=== PATIENT | male | born 1965 | race Caucasian/White ===

== ENCOUNTER 2016-09-11 20:04 | Emergency (ER) | payer OTHER | END 2016-09-11 22:15 | disposition home or self-care (01) | LOC: D.ER 20:04 | DX: S29.8XXA Other specified injuries of thorax, initial encounter (principal); W19.XXXA Unspecified fall, initial encounter; Y93.89 Activity, other specified; Y92.89 Other specified places as the place of occurrence of the external cause; F17.200 Nicotine dependence, unspecified, uncomplicated ==

== ENCOUNTER 2016-09-12 14:36 | Emergency (ER) | payer OTHER | END 2016-09-12 16:30 | disposition home or self-care (01) | LOC: D.ER 14:36 | DX: S29.8XXA Other specified injuries of thorax, initial encounter (principal); W17.89XA Other fall from one level to another, initial encounter; Y93.89 Activity, other specified; Y92.89 Other specified places as the place of occurrence of the external cause; F17.200 Nicotine dependence, unspecified, uncomplicated ==

== ENCOUNTER 2016-09-13 00:02 | Emergency (ER) | payer OTHER | END 2016-09-13 01:02 | disposition home or self-care (01) | LOC: D.ER 00:02 | DX: S22.41XS Multiple fractures of ribs, right side, sequela (principal); W13.8XXA Fall from, out of or through other building or structure, initial encounter; Y93.89 Activity, other specified; Y92.89 Other specified places as the place of occurrence of the external cause ==

== ENCOUNTER → 2016-10-01 08:38 | Outpatient (CLI) | payer OTHER | END | disposition home or self-care (01) | LOC: D.RT 08:38 | DX: J44.9 Chronic obstructive pulmonary disease, unspecified (principal) ==

== ENCOUNTER 2017-02-11 21:41 | Emergency (ER) | payer OTHER ==
[2017-02-15 12:03] VITALS: BMI 24.4
== END 2017-02-11 23:20 | disposition home or self-care (01) ==
LOC: D.ER 21:41
DX: R07.89 Other chest pain (principal); F17.200 Nicotine dependence, unspecified, uncomplicated

== ENCOUNTER 2017-02-15 11:10 | Outpatient (CLI) | payer OTHER ==
[~2017-02-15] VITALS: Ht 175.3 cm; Wt 75.0 kg
--- NOTE | ~2017-02-15 | HEMODYNAMI ---
PATIENT:BERTHA BERKOWITZ MEDICAL RECORD: [id number] : 63 LOCATION:D.CAT ADMISSION DATE: 02/15/17 Generatedon:02/15/201715:40 Patient name: BERTHA BERKOWITZ Patient #: [id number] SSN: DO B: 1965 Date of study: 02/15/2017 Page: Of Hemodynamic Procedure Report Patient Data Patient Demographics Procedure consent was obtained First Name: BERTHA Gender: Male Last Name: WOO : 1965 [facility] Initial: RIKA Age: 51 year(s) Patient #: [id number] Race: Unknown Additional ID: [id number] Contact details Address: [address] [place] [address] State: [place] City: [place] Zip code: [address] Past Medical History Allergies: No known allergies Admission Admission Data Admission Date: 02/15/2017 Admission Time: 11:10 Lab Results Lab Result Date: 02/15/2017 Lab Result Time: 0:00 Biochemistry Name Units Result Min Max BUN mg/dl 12 --(-*--)-- 7 18 Creatinine mg/dl 0.8 --(-*--)-- 0.6 1.3 CBC Name Units Result Min Max Hemoglobin g/dl 16.2 --(--*-)-- 13.5 17.5 Procedure Procedure Types Cath Procedure Diagnostic Procedure [facility] w/Coronaries PCI Procedure Coronary Stent Initial Miscellaneous Procedures Moderate Sedation up to 30 minutes Procedure Description Procedure Date Procedure Date: 02/15/2017 Procedure Start Time: 15:05 Procedure End Time: 15:35 Procedure Staff Name Function Carlos Artis MD Performing Physician Brandan Miranda RT Scrub Norma Hartman RN Nurse Brady Abad RT Monitor Procedure Data Cath Procedure Fluoroscopy Diagnostic fluoroscopy Total fluoroscopy Time: time: 10.2 min 10.2 min Diagnostic fluoroscopy Total fluoroscopy dose: dose: 1151 mGy 1151 mGy Contrast Material Contrast Material Type Amount (ml) Isovue 300 156 Entry Location Entry Primary Successful Side Size Upsize Upsize Entry Closure Bahena ccessful Closure Location (Fr) 1 (Fr) 2 (Fr) Remarks Device Remarks Radial Right 6 Fr Mechanical artery Short Compression Diagnostic catheters Device Type Used For End Catheter Placement Diagnostic Terumo 5Fr LV Angiography [place] 110cm catheter Procedure Complications No complications Procedure Medications Medication Administration Route Dosage Oxygen NC 2 l/min Lidocaine 2% added to field 20 Heparin Flush Bag added to field 2 bags (1000units/500ml NS) 0.9% NaCl I.V. 100 ml/hr Versed I.V. 1 mg Fentanyl I.V. 50 mcg Versed I.V. 1 mg Fentanyl I.V. 50 mcg Heparin Bolus I.V. 4000 units Integrilin (Bolus I.V. 6.8 ml 2mg/ml) Fentanyl I.V. 50 mcg Versed I.V. 1 mg Fentanyl I.V. 50 mcg Versed I.V. 1 mg Fentanyl I.V. 100 mcg Nitroglycerin IC/IA I.C. 100 mcg Plavix P.O. 600 mg Hemodynamics Rest HGB: 16.2 (g/dl) Heart Rate: 66 (bpm) Pressure Samples Time Site Value (mmHg) Purpose Heart Use Rate(bpm) 15:08 LV 98/10,9 EDP 81 Gradients Valve Time Site Site Mean SEP/DFP Peak To Heart Use 1 2 (mmHg) (sec/min) Peak Rate (mmHg) (bpm) Aortic 15:08 LV AO 103 Snapshots Pre Cath Intra NCS Post Cath Vital Signs Time Heart Resp SPO2 etCO2 [id number] NIBP (mmHg) Rhythm Pain Meena tion Rate (ipm) (%) (mmHg) (mmHg) Status Level (bpm) 15:01:00 67 16 94 0 0 115/70(90) NSR 0 (11) , 10(A ) No pain 15:05:04 78 19 96 0 0 114/80(91) NSR 0 (11) , 10(A ) No pain 15:09:10 90 18 95 0 0 104/72(90) NSR 0 (11) , 10(A ) No pain 15:13:11 84 19 94 0 0 108/76(91) NSR 0 (11) , 10(A ) No pain 15:17:15 79 16 93 0 0 110/78(98) NSR 0 (11) , 10(A ) No pain 15:21:19 72 17 95 0 0 109/76(99) NSR w/ ST 6 (11) , 10(A ) Elevation Intense 15:25:22 66 15 96 0 0 125/76(97) NSR w/ ST 6 (11) , 10(A ) Elevation Intense 15:29:30 67 16 95 0 0 120/81(111) NSR w/ ST 6 (11) , 10(A ) Elevation Intense 15:33:36 75 16 94 0 0 124/83(110) NSR 3 (11) , 10(A ) Tolerable Medications Time Medication Route Dose Verified Delivered Reason Notes Effectiveness by by 14:55:21 Oxygen NC 2 Carlos Buffie used for l/min St. Abel Hartman RN procedure 14:55:28 Lidocaine 2% added 20ml Carlos Carlos for local to vial [facility] anesthetic field MD BLUNT 14:55:36 Heparin Flush added 2 Carlos Carlos used for Bag to bags [facility] procedure (1000units/500ml field MD BLUNT NS) 14:55:46 0.9% NaCl I.V. 100 Carlos Buffie Per physician ml/hr [facility]. Abel Hartman RN, MD 15:03:46 Versed I.V. 1 mg Carlos Buffie for sedation [facility]. Abel Hartman RN, MD 15:03:53 Fentanyl I.V. 50 Carlos Buffie for sedation mcg [facility] Abel Hartman RN, MD 15:07:14 Versed I.V. 1 mg Carlos Buffie for sedation St. Abel Hartman RN, MD 15:07:17 Fentanyl I.V. 50 Carlos Buffie for sedation mcg St. Abel Hartman RN, MD 15:11:50 Heparin Bolus I.V. 4000 Carlos Buffie for verifi ed units St. Abel Hartman RN anticoagulation with dr MD aviles 15:13:43 Integrilin I.V. 6.8 Carlos Buffie for wasted (Bolus 2mg/ml) ml St. Abel Hartman RN antiplatelet 3.2 ml MD therapy of vial 15:15:05 Fentanyl I.V. 50 Carlos Buffie for sedation mcg St[facility] Abel Hartman RN, MD 15:19:23 Versed I.V. 1 mg Carlos Buffie for sedation St. Abel Hartman RN, MD 15:19:26 Fentanyl I.V. 50 Carlos Buffie for sedation mcg St[facility] Abel Hartman RN, MD 15:25:17 Versed I.V. 1 mg Carlos Green for sedation St. Abel Hartman RN, MD 15:28:07 Fentanyl I.V. 100 Carlos Green for sedation jac Moss RN, MD 15:29:58 Nitroglycerin I.C. 100 Carlos Gonzalez for IC/IA mcg St. Abel Cody MD, MD 15:36:01 Plavix P.O. 600 Carlos Green for mg [facility] Abel Hartman RN antiplatelet therapy Procedure Log Time Note 14:36:34 Brandan Miranda RT(R) sent for patient. Start room use. 14:36:35 Time tracking: Regular hours 14:36:41 Plan of Care:Hemodynamics will remain stable., Cardiac rhythm will remain stable., Comfort level will be maintained., Respiratory function will remain adequate., Patient/ family verbilizes understanding of procedure., Procedure tolerated without complication., Recovers from procedure without complications.. 14:49:15 Patient received from Pre/Post Procedure Room to [facility] 1 Alert and oriented. Tansferred to table in Supine position. 14:49:16 Warm blankets applied, and brigid hugger turned on for patient comfort. 14:49:16 Correct patient and procedure confirmed by team. 14:49:17 Signed procedure consent form obtained from patient. 14:49:18 ECG and BP/O2 sat monitors applied to patient. 14:49:25 Baseline sample Acquired. 14:49:36 Baseline sample Acquired. 14:49:41 Rhythm: sinus rhythm 14:49:43 Full Disclosure recording started 14:55:21 Oxygen 2 l/min NC was administered by Norma Hartman RN; used for procedure; 14:55:28 Lidocaine 2% 20ml vial added to field was administered by Carlos Artis MD; for local anesthetic; 14:55:36 Heparin Flush Bag (1000units/500ml NS) 2 bags added to field was administered by Carlos Artis MD; used for procedure; 14:55:46 0.9% NaCl 100 ml/hr I.V. was administered by Norma Hartman RN; Per physician; 14:59:54 Baseline sample Acquired. 14:59:54 Vital chart was started 15:00:03 H&P Date Dictated: 02/11/2017 Within 30 days and on chart., H&P Addendum completed by physician on day of procedure. (MUST COMPLETE FOR ALL OUTPATIENTS). 15:00:05 Pre-procedure instructions explained to patient. 15:00:06 Pre-op teaching completed and patient verbalized understanding. 15:00:08 Family in waiting room. 15:00:10 Patient NPO since Midnight. 15:00:18 Patient allergic to No known allergies 15:00:23 Is the patient allergic to Iodine/contrast media? No. 15:00:29 Is patient on blood thinner?No 15:00:32 Patient diabetic? No. 15:00:34 ----Pre-sedation anethsthesia assessment.---- 15:00:37 Previous problem with sedation/anesthesia? No . 15:00:40 Snore? Yes 15:00:42 Sleep apnea? No 15:00:43 Deviated septum? No 15:00:45 Opens mouth fully? Yes 15:00:47 Sticks out tongue? No 15:00:51 Airway obstruction? Yes COPD 15:00:57 Dentures? Yes IN TIGHT 15:01:04 Pre procedure: right dorsailis pedis pulse 1+ Palpable, but thready & weak; easily obliterated 15:01:08 Modified Juan's test Ulnar > 7 seconds. 15:01:11 Patient pain scale 0/10 ?. 15:01:18 IV patent on arrival in left forearm with 0.9% NaCl at 10ml/hr. 15:01:43 Lab Result : BUN 12 mg/dl 15:01:43 Lab Result : Hemoglobin 16.2 g/dl 15:01:43 Lab Result : Creatinine 0.8 mg/dl 15:01:46 Lab results completed and on chart. 15:01:50 Right Radial & Right Groin area was prepped with chlora-prep and draped in sterile fashion 15:01:51 Alarms reviewed by R. N. 15:01:52 Sharps counted by scrub and verified by R.N. 15:01:54 --------ALL STOP TIME OUT------ 15::55 Final Timeout: patient, procedure, and site verified with staff and physician. All members of the team are in agreement. 15:02:04 Right Radial & Right Groin site verified by team. 15:02:11 Physical assessment completed. ASA score P 2 - A patient with mild systemic disease as per Carlos Artis MD. 15:02:14 Sedation plan: IV Moderate Sedation Versed, Fentanyl 15:03:46 Versed 1 mg I.V. was administered by Norma Hartman RN; for sedation; 15:03:53 Fentanyl 50 mcg I.V. was administered by Norma Hartman RN; for sedation; 15:05:24 Use device set Radial Dx 15:05:25 Acist Syringe opened to sterile field. 15:05: Medline Cath Pack opened to sterile field. 15:05:26 Bag Decanter opened to sterile field. 15:05: Terumo 6Fr Slender Glidesheath opened to sterile field. 15:05:27 St Benjamin 260cm J .035 wire opened to sterile field. 15:05:27 Acist Hand Control opened to sterile field. 15:05:27 Acist Manifold opened to sterile field. 15:05:28 Tegaderm 4 x 4 opened to sterile field. 15:05:28 MBrace Wrist Support opened to sterile field. 15:05:31 Procedure started. 15:05:47 Local anesthetic to right radial artery with Lidocaine 2% by Carlos Artis MD.INITIAL ACCESS ONLY 15:05:55 A 6 Fr Short sheath was inserted into the Right Radial artery 15:06:25 A Diagnostic Terumo 5Fr [place] 110cm catheter was advanced over the wire and used for LV Angiography. 15:06:29 LV angiography performed. 15:06:31 LV gram done using RUFFIN 15:06:34 LV hemodynamics recorded. 15:06:38 Injector settings: Ml/sec: 5, Volume: 15, 15:07:14 Versed 1 mg I.V. was administered by Norma Hartman RN; for sedation; 15:07:17 Fentanyl 50 mcg I.V. was administered by Norma Hartman RN; for sedation; 15:08:26 EF : 55 % 15:08:39 LCA angiography performed. 15:10:06 RCA angiography performed. 15:11:04 Catheter removed. 15:11:50 Heparin Bolus 4000 units I.V. was administered by Norma Hartman RN; for anticoagulation; verified with dr aviles 15:13:08 Stirling Ultracold(Global Cooling) Launcher 6Fr EBU 3.5 guide catheter opened to sterile field. 15:13:08 Health 123 BasixCompak Inflation Kit opened to sterile field. 15:13:09 Lares [place] 300cm 0.014 guide wire opened to sterile field. 15:13:39 ACC Pre-intervention DOC Flow is 3. 15:13:43 Integrilin (Bolus 2mg/ml) 6.8 ml I.V. was administered by Norma Hartman RN; for antiplatelet therapy; wasted 3.2 ml of vial 15:13:50 Baseline sample Acquired. 15:13:56 Study PCI Site: [place] mCirc has 90% stenosis. 15:14:05 6 Fr EBU 3.5 guide catheter was inserted over the wire 15:14:41 COUGAR wire advanced. 15:15:05 Fentanyl 50 mcg I.V. was administered by Norma Hartman RN; for sedation; 15:19:23 Versed 1 mg I.V. was administered by Norma Hartman RN; for sedation; 15:19:26 Fentanyl 50 mcg I.V. was administered by Norma Hartman RN; for sedation; 15:22:38 The Medtronic Integrity 3.5 X 22 stent was advanced then removed because of failure to cross lesion 15:23:28 Inflation number: 1 A [place] Sci Christian 3.0 X 15 balloon was prepped and advanced across the Mid CX, then inflated to 10 DENIS for 0:23 (min:sec). 15:23:36 Inflation number: 2 The [place] Sci Christian 3.0 X 15 balloon was reinflated across the Mid CX, to 10 DENIS for 0:06 (min:sec). 15:24:07 Inflation number: 3 The [place] Sci Christian 3.0 X 15 balloon was reinflated across the Mid CX, to 12 DENIS for 0:20 (min:sec). 15:24:44 Balloon removed over the wire. 15:25:17 Versed 1 mg I.V. was administered by Norma Hartman RN; for sedation; 15:27:25 Inflation Number: 4 A Medtronic Integrity 3.5 X 22 stent was prepped and advanced across the Mid CX. The stent was deployed at 14 DENIS for 0:20 (min:sec). 15:28:07 Fentanyl 100 mcg I.V. was administered by Norma Hartman RN; for sedation; 15:29:58 Nitroglycerin IC/IA 100 mcg I.C. was administered by Carlos Artis MD; for vasodilation; 15:31:01 Stent catheter was removed intact over wire. 15:31:02 Wire removed. 15:31:02 Guide catheter removed. 15:31:15 Contrast amount:Isovue 300 156ml. 15:31:23 Sheath removed intact; hemostasis achieved with Mechanical Compression to the Right Radial artery. 15:31:39 Terumo TR Band Standard opened to sterile field. 15:31:42 Procedure ended.(Physican Out) 15:32:03 Fluoroscopy time 10.20 minutes. 15:32:08 Fluoroscopy dose: 1151 mGy 15:32:08 Flurop Dose total: 1151 15:32:10 Sharps counted by scrub and verified by R.N. 15:32:13 TR band inflated with 10cc of air. 15:33:44 Post Procedure Pulses reassessed and unchanged 15:33:51 Post procedure rhythm: sinus rhythm 15:34:13 Post procedure instruction explained to patient.Patient verbalizes understanding. 15:34:31 Procedure type changed to Cath procedure, Diagnostic procedure, LHC, LHC w/Coronaries, PCI procedure, Coronary Stent Initial, Miscellaneous Procedures, Moderate Sedation up to 30 minutes 15:34:53 Procedure and supply charges have been captured, reviewed, submitted and are correct. 15:34:56 Procedure Complication : No complications 15:34:59 Vital chart was stopped 15:34:59 See physician's report for complete and final results. 15:35:01 Report given to Pre/Post Procedure Room. 15:35:05 Patient transfered to Pre/Post Procedure Room with Stretcher. 15:35:07 Procedure ended. 15:35:07 Full Disclosure recording stopped 15:35:11 End room use (Document Last) 15:35:25 ACC-PCI Only Patient was given prescriptions, or instructed by Carlos Artis MD to start/continue the following medications upon discharge: Plavix 15:36:01 Plavix 600 mg P.O. was administered by Norma Hartman RN; for antiplatelet therapy; Intervention Summary Intervention Notes Time ActionType Lesion and Equipment Action# Pressure Duration Attributes Used 15:22:38 Discard Medtronic Stent Integrity 3.5 X 22 stent 15:23:28 Inflate Mid CX [place] 1 10 00:23 balloon Sci Christian 3.0 X 15 balloon 15:23:36 Reinflate Mid CX [place] 2 10 00:07 balloon Sci Christian 3.0 X 15 balloon 15:24:07 Reinflate Mid CX [place] 3 12 00:20 balloon Sci Christian 3.0 X 15 balloon 15:27:25 Place stent Mid CX Medtronic 4 14 00:20 Integrity 3.5 X 22 stent Device Usage Item Name Manufacture Quantity Catalog Number Hospital Part Current Mini mal Lot# / Charge Number Stock Stock Serial# Code Acist Acist 1 96179 124556 060673 536163 20 Syringe Medical Systems Inc Medline Cardinal 1 [id number] 427657 60187 154489 5 Cath Pack Health Bag Microtek 1 2001S 946202 02352 846243 5 Skydeck Inc. Terumo 6Fr Terumo 1 [id number] 346224 553947 038036 [address] St Benjamin 1 733308 508874 855889 667374 30 260cm J .035 wire Acist Hand Acist 1 02402 606366 499815 743391 5 Control Medical Systems Inc Acist Acist 1 94806 330333 390412 273325 5 Manifold Medical Systems Inc Tegaderm 4 3M 1 1626W 436412 180978 826885 5 x 4 MBrace Advanced 1 140-0250-00 544820 40275 499262 5 Wrist Vascular Support Dynamics Diagnostic Terumo 1 40-5562 609897 546855 656015 5 Terumo 5Fr [place] 110cm catheter Medtronic Medtronic 1 [id number] 265079 33607 720709 3 Launcher 6Fr EBU 3.5 guide catheter Merit Merit 1 [id number] 200125 028308 082600 15 BasixCompak Medical Inflation Kit Lares Lares 1 [id number] 160525 195087 641803 1 [place] Vascular 300cm 0.014 guide wire Medtronic Medtronic 1 [id number] 114629 722866 8 [id number] Integrity 3.5 X 22 stent [place] Sci [place] 1 [id number] 195674 564880 594785 1 [id number] Christian Scientific 3.0 X 15 balloon Terumo TR Terumo 1 [id number] 091107 616186 061308 40 Band Standard Signature Audit [place] Stage Time Signature Unsigned Intra-Procedure 02/15/2017 Brady Abad 3:40:22 PM RT(R) Signatures Monitor : Brady Abad RT Signature : Date : Time : [address] [place] [address]
[2017-02-15] MEDS ORDERED: QVAR8.7 G1 INH (11:52)
[2017-02-15] MEDS ORDERED: TORADOL10 MG PO (11:52)
[2017-02-15] MEDS ORDERED: PROAIR HFA8.5 GM INH (11:53)
[2017-02-15 12:03] VITALS: BP 121/84; Ht 175.3 cm; Wt 75.0 kg
[2017-02-15 12:57] LABS: BASOPHILS 0.2 % (0-2); EOSINOPHILS 2.5 % (0-7); HEMOGLOBIN 16.2 g/dL (13.5-17.5); IMMATURE GRANULOCYTES 0.3 % (0-5); LYMPHOCYTES 20.4 % (15-50); MCH 31.7 pg (26.0-34.0); MCHC 34.5 g/dL (31.0-37.0); MEAN PLATELET VOLUME 9.5 fL (7.4-10.4); MONOCYTES 6.8 % (2-11); NEUTROPHILS 69.8 % (40-80); PLATELET COUNT 293 10x3/uL (130-400); RBC 5.11 10x6/uL (4.20-6.10); RDW 13.4 % (11.5-14.5); WBC 10.6 10x3/uL (4.8-10.8)
[2017-02-15 13:40] LABS: CALC OSMOLALITY 279 mosm/kg (275-300); CARBON DIOXIDE 26.4 mmol/L (21.0-32.0); CHLORIDE - SERUM 105 mmol/L (98-107); CREATININE - SERUM 0.8 mg/dL (0.6-1.3); GLUCOSE 88 mg/dL (74-106); POTASSIUM - SERUM 4.5 mmol/L (3.5-5.1); SODIUM 141 mmol/L (136-145); UREA NITROGEN 12 mg/dL (7-18); eGFR NON AFRICAN AMERICAN > 90 mL/min (90-120)
[2017-02-15] MEDS ORDERED: PLAVIX75 MG PO (15:59)
--- NOTE | 2017-02-15 16:00 | NUR ---
TR BAND CDI TO RIGHT WRIST, NO BLEEDING AT SITE, C/O CHEST DISCOMFORT-DR NOTIFIED
--- NOTE | 2017-02-15 16:15 | NUR ---
CHEST DISCOMFORT AT A 7- MORPHINE 10 MG GIVEN SIVP, O2 AT 2L PER NC, AT SIDE. EATING A SANDWICH AT THIS TIME.
--- NOTE | 2017-02-15 16:45 | NUR ---
PAIN BETTER- 5 AT THIS TIME
--- NOTE | 2017-02-15 19:55 | NUR ---
WRITTEN AND VERBAL INSTRUCTIONS GIVEN TO PT AND - VERBAL UNDERSTANDING NOTED. D'C HOME WITH
--- NOTE | 2017-02-16 13:16 | OP ---
PATIENT NAME: BERTHA BERKOWITZ MEDICAL RECORD: [id number] :63 LOCATION:D.CAT ADMISSION DATE: SURGEON: PIYUSH MONGE MD OPERATION DATE: 02/15/17 PROCEDURES: 1. Left heart catheterization. 2. Selective coronary angiography. PROCEDURE IN DETAIL: After informed consent was obtained and after detailed explanation of risks, benefits, as well as alternative therapies, the patient elected to proceed with angiogram. The right radial area was prepped and draped in a normal sterile fashion. The right radial artery was cannulated via modified Seldinger technique with placement o f 5-Turkmen sheath, 5 [place]. All catheters exchanged through this sheath. The procedure was well-tolerated. The patient was returned to the montero. After sheath was removed, proceeded with percutaneous transluminal coronary angioplasty stenting of the circumflex. FINDINGS: Left ventriculography was performed in standard 30 degree RUFFIN view, normal wall motion, normal systolic function. CORONARY ANATOMY: 1. The left main is free of disease. 2. The left anterior descending is free of disease as is the diagonal system. 3. The circumflex is a large circumflex system codominant, and this has an elongated tight 90% plus stenosis. DOC flow 3 distally. 4. The right coronary artery is again a codominant system. It has about an 80% diffuse stenosis in its proximal one-third. IMPRESSION: Appears to be circumflex. Plan intervention momentarily. After EBU guided catheter provided excellent guidance of the catheter forward followed by a 300 centimeter [place] XT wire was placed across the tightly occluded circumflex to the distal portion of the vessel. Pre-deployment balloon used was a 3.0 X 15 Pepin. The stent deployed was a 3.5 X 22 millimeter Integrity [id number] stent up to 14 atmospheres for 45 seconds. Final angiography shows excellent resolution of a greater than 90% stenosis. No significant residual. DOC flow was 3 throughout the procedure. Integrilin was used during the case. Plavix was loaded in the lab. Sheath was closed with TR band. PIYUSH MONGE MD at 1316 CC: [id number] DICTATION DATE: 02/15/17 1500 AESTHETICIAN: DM 02/16/17 0857 DEP CLI 02/15/17 [facility] [address] [place] [address]
== END 2017-02-15 20:00 | disposition home or self-care (01) ==
LOC: D.CATH 11:10
PROVIDERS: Internal Medicine Interventional Cardiology
DX: I25.10 Atherosclerotic heart disease of native coronary artery without angina pectoris (principal)

== ENCOUNTER 2017-02-23 11:14 | Outpatient (CLI) | payer OTHER ==
[~2017-02-23] VITALS: Ht 175.3 cm; Wt 75.0 kg
--- NOTE | ~2017-02-23 | HEMODYNAMI ---
PATIENT:BERTHA BERKOWITZ MEDICAL RECORD: [id number] : 63 LOCATION:DTamikoCAT ADMISSION DATE: 02/23/17 Generatedon:02/23/201714:23 Patient name: BERTHA BERKOWITZ Patient #: [id number] SSN: DO B: 1965 Date of study: 02/23/2017 Page: Of Hemodynamic Procedure Report Patient Data Patient Demographics Procedure consent was obtained First Name: BERTHA Gender: Male Last Name: WOO : 1965 [facility] Initial: RIKA Age: 51 year(s) Patient #: [id number] Race: Unknown Additional ID: [id number] Contact details Address: [address] [place] [address] State: [place] City: [place] Zip code: [address] Past Medical History Allergies: No known allergies Admission Admission Data Admission Date: 02/23/2017 Admission Time: 11:14 Lab Results Lab Result Date: 02/23/2017 Lab Result Time: 0:00 Biochemistry Name Units Result Min Max Creatinine mg/dl 0.9 --(-*--)-- 0.6 1.3 CBC Name Units Result Min Max Hemoglobin g/dl 16.3 --(--*-)-- 13.5 17.5 Procedure Procedure Types Cath Procedure PCI Procedure Coronary Stent Initial Miscellaneous Procedures Moderate Sedation up to 30 minutes Procedure Description Procedure Date Procedure Date: 02/23/2017 Procedure Start Time: 13:59 Procedure End Time: 14:22 Procedure Staff Name Function Carlos Artis MD Performing Physician Gordo Garcia RT Scrub Norma Hartman RN Nurse Neema Wooten RT Monitor Alistair Hagan RN [employer] Football[employer] Procedure Data Cath Procedure Fluoroscopy Diagnostic fluoroscopy Total fluoroscopy Time: 2.6 time: 2.6 min min Diagnostic fluoroscopy Total fluoroscopy dose: 112 dose: 112 mGy mGy Contrast Material Contrast Material Type Amount (ml) Isovue 300 37 Entry Location Entry Primary Successful Side Size Upsize Upsize Entry Closure Succes sful Closure Location (Fr) 1 (Fr) 2 (Fr) Remarks Device Remarks Femoral Right 6 Fr Exoseal artery Short Estimated blood loss: 5 ml Procedure Complications No complications Procedure Medications Medication Administration Route Dosage Oxygen NC 2 l/min Lidocaine 2% added to field 20 Heparin Flush Bag added to field 2 bags (1000units/500ml NS) 0.9% NaCl I.V. 100 ml/hr Versed I.V. 2 mg Fentanyl I.V. 100 mcg Versed I.V. 2 mg Fentanyl I.V. 100 mcg Heparin Bolus I.V. 4000 units Versed I.V. 1 mg Fentanyl I.V. 50 mcg Fentanyl I.V. 50 mcg Versed I.V. 2 mg Hemodynamics Rest Heart Rate: 76 (bpm) Snapshots Pre Cath Intra NCS Post Cath Vital Signs Time Heart Resp SPO2 etCO2 WI2rwcf NIBP (mmHg) Rhythm Pain Status Meena tion Rate (ipm) (%) (mmHg) (mmHg) Level (bpm) 13:50:29 78 15 97 0 0 115/79(86) NSR 0 (11) , No 10(A ) pain 13:54:35 76 18 98 0 0 105/74(92) NSR 0 (11) , No 10(A ) pain 13:58:36 85 16 95 0 0 101/75(88) NSR 0 (11) , No 10(A ) pain 14:02:34 80 16 96 0 0 109/81(93) NSR 0 (11) , No 10(A ) pain 14:06:38 83 17 95 0 0 107/74(88) NSR 0 (11) , No 10(A ) pain 14:10:37 90 17 98 0 0 110/84(95) NSR 7 (11) , 10(A ) Very intense 14:14:39 87 16 98 0 0 116/81(107) NSR 7 (11) , 10(A ) Very intense 14:18:43 90 16 98 0 0 112/77(97) NSR 7 (11) , 10(A ) Very intense 14:22:02 86 16 98 0 0 110/89(94) NSR 5 (11) , 10(A ) Very distressing Medications Time Medication Route Dose Verified Delivered Reason Notes Effectiveness by by 13:55:59 Oxygen NC 2 Carlos Green used for l/min St. Abel Hartman RN procedure 13:56:05 Lidocaine 2% added 20ml Carlos Carlos for local to vial [facility] anesthetic field MD BLUNT 13:56:12 Heparin Flush added 2 Carlos Carlos used for Bag to bags [facility] procedure (1000units/500ml field MD BLUNT NS) 13:56:20 0.9% NaCl I.V. 100 Carlos Buffie Per physician ml/hr St. Abel Hartman RN, MD 13:57:13 Versed I.V. 2 mg Carlos Buffie for sedation St. Abel Hartman RN, MD 13:57:19 Fentanyl I.V. 100 Carlos Buffie for sedation mcg St[facility] Abel Hartman RN, MD 14:02:19 Versed I.V. 2 mg Carlos Buffie for sedation St. Abel Hartman RN, MD 14:02:22 Fentanyl I.V. 100 Carlos Buffie for sedation mcg St. Abel Hartman RN, MD 14:03:27 Heparin Bolus I.V. 4000 Carlos Buffie for verifi ed units St. Abel Hartman RN anticoagulation with dr MD ray 14:06:17 Versed I.V. 1 mg Carlos Buffie for sedation St. Abel Hartman RN, MD 14:06:21 Fentanyl I.V. 50 Carlos Buffie for sedation mcg St. Abel Hartman RN, MD 14:14:33 Fentanyl I.V. 50 Carlos Buffie for chest pain mcg St. Abel Hartman RN, MD 14:18:29 Versed I.V. 2 mg Carlos Buffie for sedation St. Abel Hartman RN, MD Procedure Log Time Note 13:39:49 Alistair Hagan RN sent for patient. Start room use. 13:39:49 Time tracking: Regular hours 13:39:53 Plan of Care:Hemodynamics will remain stable., Cardiac rhythm will remain stable., Comfort level will be maintained., Respiratory function will remain adequate., Patient/ family verbilizes understanding of procedure., Procedure tolerated without complication., Recovers from procedure without complications.. 13:39:58 Patient received from Pre/Post Procedure Room to [facility] 1 Alert and oriented. Tansferred to table in Supine position. 13:39:59 Warm blankets applied, and brigid hugger turned on for patient comfort. 13:39:59 Correct patient and procedure confirmed by team. 13:40:00 Signed procedure consent form obtained from patient. 13:40:01 ECG and BP/O2 sat monitors applied to patient. 13:40:02 Full Disclosure recording started 13:49:32 Vital chart was started 13:49:35 Rhythm: sinus rhythm 13:51:07 H&P Date Dictated: 02/11/2017 Within 30 days and on chart., H&P Addendum completed by physician on day of procedure. (MUST COMPLETE FOR ALL OUTPATIENTS). 13:51:44 Pre-procedure instructions explained to patient. 13:51:44 Pre-op teaching completed and patient verbalized understanding. 13:51:46 Family in waiting room. 13:51:49 Patient NPO since Midnight. 13:51:56 Is the patient allergic to Iodine/contrast media? No. 13:51:57 Is patient on blood thinner?Yes 13:51:59 ACC The patient was administered the following blood thiners within the last 24 hours: ACCPlavix 13:52:01 Patient diabetic? No. 13:52:05 Previous problem with sedation/anesthesia? No ? 13:52:06 Snore? Yes 13:52:07 Sleep apnea? No 13:52:08 Deviated septum? No 13:52:09 Opens mouth fully? Yes 13:52:09 Sticks out tongue? Yes 13:52:11 Airway obstruction? No ? 13:52:13 Dentures? Yes In 13:52:17 Pre procedure: right dorsailis pedis pulse 2+ Normal; easily identifiable; not easily obliterated 13:52:20 Patient pain scale 0/10 ?. 13:52:42 IV patent on arrival in left hand with 0.9% NaCl at O. 13:52:49 Lab results completed and on chart. 13:53:53 Lab Result : Creatinine 0.9 mg/dl 13:53:53 Lab Result : Hemoglobin 16.3 g/dl 13:53:59 Right groin area was prepped with chlora-prep and draped in sterile fashion 13:54:00 Alarms reviewed by R. N. 13:54:00 Sharps counted by scrub and verified by R.N. 13:54:03 Use device set Femoral PCI 13:54:04 Acist Syringe opened to sterile field. 13:54:05 Acist Hand Control opened to sterile field. 13:54:05 Bag Decanter opened to sterile field. 13:54:05 Medline Cath Pack opened to sterile field. 13:54:06 Terumo 6Fr [place] Sheath opened to sterile field. 13:54:06 St Benjamin 260cm J .035 wire opened to sterile field. 13:54:06 Merit BasixCompak Inflation Kit opened to sterile field. 13:54:07 Acist Manifold opened to sterile field. 13:54:07 Tegaderm 4 x 4 opened to sterile field. 13:54:22 Lares Adams 300cm 0.014 guide wire opened to sterile field. 13:54:23 Medtronic Launcher 6Fr HS I guide catheter opened to sterile field. 13:54:56 Final Timeout: patient, procedure, and site verified with staff and physician. All members of the team are in agreement. 13:54:59 Right groin site verified by team. 13:55:03 Physical assessment completed. ASA score P 2 - A patient with mild systemic disease as per Carlos Artis MD. 13:55:07 Sedation plan: IV Moderate Sedation Versed, Fentanyl 13:55:59 Oxygen 2 l/min NC was administered by Norma Hartman RN; used for procedure; 13:56:05 Lidocaine 2% 20ml vial added to field was administered by Carlos Artis MD; for local anesthetic; 13:56:12 Heparin Flush Bag (1000units/500ml NS) 2 bags added to field was administered by Carlos Artis MD; used for procedure; 13:56:20 0.9% NaCl 100 ml/hr I.V. was administered by Norma Hartman RN; Per physician; 13:57:13 Versed 2 mg I.V. was administered by Norma Hartman RN; for sedation; 13:57:19 Fentanyl 100 mcg I.V. was administered by Norma Hartman RN; for sedation; 13:57:45 Baseline sample Acquired. 13:59:18 Procedure started. 13:59:25 Local anesthetic to right femoral artery with Lidocaine 2% by Carlos Artis MD.INITIAL ACCESS ONLY 14:01:53 Zero performed for pressure channel P1 14:01:58 Zero performed for pressure channel P1 14:02:01 Zero performed for pressure channel P1 14:02:04 Zero performed for pressure channel P1 14:02:07 Zero performed for pressure channel P1 14:02:19 Versed 2 mg I.V. was administered by Buffie Hartman RN; for sedation; 14:: Fentanyl 100 mcg I.V. was administered by Norma Hartman RN; for sedation; 14:: A 6 Fr Short sheath was inserted into the Right Femoral artery 14::24 6 Fr HS I guide catheter was inserted over the wire 14:: Heparin Bolus 4000 units I.V. was administered by Norma Hartman RN; for anticoagulation; verified with dr ray 14:06:17 Versed 1 mg I.V. was administered by Norma Hartman RN; for sedation; 14::21 Fentanyl 50 mcg I.V. was administered by Norma Hartman RN; for sedation; 14::28 Adams wire advanced. 14:09:35 Inflation Number: 1 A Mitrionicstronic Integrity 3.5 X 26 stent was prepped and advanced across the Mid RCA. The stent was deployed at 14 DENIS for 0:34 (min:sec). 14:10:08 Stent catheter was removed intact over wire. 14:10:09 Wire removed. 14:10:10 Guide catheter removed. 14:10:32 Cordis 6Fr Exoseal opened to sterile field. 14:10:38 Sheath removed intact; hemostasis achieved with Exoseal to the Right Femoral artery. 14:11:26 Procedure ended.(Physican Out) 14:12:07 Fluoroscopy time 02.60 minutes. 14:12:12 Flurop Dose total: 112 14:12:12 Fluoroscopy dose: 112 mGy 14:12:22 Contrast amount:Isovue 300 37ml. 14:12:23 Sharps counted by scrub and verified by R.N. 14:12:24 Insertion/operative site no bleeding no hematoma. 14:12:27 Post-op/insertion site Right Femoral artery dressed using a 4 x 4 and Tegaderm. 14:12:30 Post right femoral artery:stable, clean and dry 14:12:32 Post Procedure Pulses reassessed and unchanged 14:12:38 Post-procedure physical assessment completed. ASA score P 2 - A patient with mild systemic disease as per Carlos Artis MD. 14:12:42 Post procedure rhythm: unchanged. 14:12:46 Estimated blood loss: 5 ml 14:12:47 Post procedure instruction explained to patient.Patient verbalizes understanding. 14:12:48 Patient needs reinforcement of post procedure teaching. 14:13:46 Procedure type changed to Cath procedure, PCI procedure, Coronary Stent Initial, Miscellaneous Procedures, Moderate Sedation up to 30 minutes 14:13:52 Procedure Complication : No complications 14:14:05 See physician's report for complete and final results. 14:14:05 Procedure and supply charges have been captured, reviewed, submitted and are correct. 14:14:33 Fentanyl 50 mcg I.V. was administered by Norma Hartman RN; for chest pain; 14:18:29 Versed 2 mg I.V. was administered by Norma Hartman RN; for sedation; 14:22:33 Vital chart was stopped 14:22:35 Report given to Pre/Post Procedure Room. 14:22:38 Patient transfered to Pre/Post Procedure Room with Stretcher. 14:22:47 Procedure ended. 14:22:47 Full Disclosure recording stopped 14:22:50 End room use (Document Last) Intervention Summary Intervention Notes Time ActionType Lesion and Equipment Action# Pressure Duration Attributes Used 14:09:35 Place stent Mid RCA Medtronic 1 14 00:34 Integrity 3.5 X 26 stent Device Usage Item Name Manufacture Quantity Catalog Hospital Part Current Minimal Lot# / Number Charge Number Stock Stock Serial# Code Acist Acist 1 [id number] [id number] 704514 653517 20 Syringe Medical Systems Inc Acist Hand Acist 1 32209 727707 530465 178059 5 Ritani Medical Systems Inc Bag Microtek 1 2002S 743870 91487 157759 5 DecYouOS Medical Inc. Medline Cardinal 1 [id number] 915888 86759 508970 5 Cath Pack Health Terumo 6Fr Terumo 1 [id number] 777042 874908 613799 [address] Benjamin 1 589315 799732 940832 586514 30 260cm J .035 wire Merit Merit 1 [id number] 820731 042220 008863 15 SoligenixixMy Visual Brief Medical Inflation Kit Acist Acist 1 79191 944099 558147 122518 5 Manifold Medical Systems Inc Tegaderm 4 3M 1 1626W 194698 516286 276829 5 x 4 Lares Lares 1 [id number] 421856 102425 777615 1 Adams Vascular 300cm 0.014 guide wire Medtronic Medtronic 1 [id number] 092327 16334 586426 1 Launcher 6Fr HS I guide catheter Medtronic Medtronic 1 [id number] 988114 165051 3 [id number] Integrity 3.5 X 26 stent Cordis 6Fr Cardinal 1 EX600 575143 840340 871682 10 [facility] Signature Audit [place] Stage Time Signature Unsigned Intra-Procedure 02/23/2017 Neema 2:23:03 PM Counts RT(R) Signatures Monitor : Neema Signature : Counts RT Date : Time : [place] [address] [place] [address]
[~2017-02-23 11:14] MED LIST: PLAVIX75 MG PO; PROAIR HFA8.5 GM INH; QVAR8.7 G1 INH; TORADOL10 MG PO
[2017-02-23 11:30] VITALS: BP 115/79; Ht 175.3 cm; Wt 75.0 kg
[2017-02-23 11:54] LABS: BASOPHILS 0.5 % (0-2); EOSINOPHILS 7.1 % (0-7); HEMATOCRIT 46.4 % (42.0-54.0); HEMOGLOBIN 16.3 g/dL (13.5-17.5); IMMATURE GRANULOCYTES 0.3 % (0-5); LYMPHOCYTES 19.5 % (15-50); MCH 31.8 pg (26.0-34.0); MCHC 35.1 g/dL (31.0-37.0); MCV 90.4 fL (80.0-100.0); MEAN PLATELET VOLUME 9.8 fL (7.4-10.4); MONOCYTES 9.1 % (2-11); NEUTROPHILS 63.5 % (40-80); PLATELET COUNT 322 10x3/uL (130-400); RBC 5.13 10x6/uL (4.20-6.10); RDW 13.1 % (11.5-14.5); WBC 10.6 10x3/uL (4.8-10.8)
[2017-02-23 12:09] LABS: CALC OSMOLALITY 273 mosm/kg (275-300); CARBON DIOXIDE 24.3 mmol/L (21.0-32.0); CHLORIDE - SERUM 103 mmol/L (98-107); CREATININE - SERUM 0.9 mg/dL (0.6-1.3); GLUCOSE 95 mg/dL (74-106); SODIUM 137 mmol/L (136-145); UREA NITROGEN 13 mg/dL (7-18); eGFR NON AFRICAN AMERICAN > 90 mL/min (90-120)
[2017-02-23 12:19] LABS: POTASSIUM - SERUM 4.6 mmol/L (3.5-5.1)
--- NOTE | 2017-02-23 14:45 | NUR ---
RIGHT GROIN CDI, NO HEMATOMA OR BLEEDING AT SITE, SOFT TO TOUCH, AT SIDE
[2017-02-23] MEDS ORDERED: AMBIEN10 MG PO (14:46)
--- NOTE | 2017-02-23 15:15 | NUR ---
NO CHANGE IN RIGHT GROIN, RESTING WITH AND FATHER AT SIDE
--- NOTE | 2017-02-23 18:15 | NUR ---
IV D'C WITH CATH TIP INTACT, UP TO RESTROOM-VOID, WRITTEN AND VERBAL D'C INSTRUCTIONS GIVEN TO PT AND -VERBAL UNDERSTANDING NOTED, DENIES FURTHUR NEEDS. 1830-D'C HOME WITH
--- NOTE | 2017-02-24 14:41 | OP ---
PATIENT NAME: BERTHA BERKOWITZ MEDICAL RECORD: [id number] :63 LOCATION:D.CAT ADMISSION DATE: SURGEON: PIYUSH MONGE MD DATE OF OPERATION: 02/23/2017 For full cath report, please see report dictated previously. DESCRIPTION OF PROCEDURE: After a 6-Thai sheath was placed in the right femoral artery, a hockey stick guide catheter provided excellent guide catheter support followed by a 300 cm Ulysses XT wire was placed across totally occluded right down to a portion of this vessel. Stent deployed was a 26 mm x 3.5 Integrity nondrug-eluting stent up to 14 atmospheres. Final angiography shows excellent resolution of a diffuse 80% stenosis, no significant residual. DOC flow was 3 throughout the procedure. Sheath was closed with ExoSeal device. The patient was previously on Plavix. TRANSINT:[id number] Voice Confirmation ID: [id number] DOCUMENT ID: [id number] PIYUSH MONGE MD at 1441 CC: [id number] DICTATION DATE: 02/23/17 1415 INDUSTRIAL RELATIONS ANALYST: 02/23/17 1828 DEP CLI 02/23/17 [place] [address] [id number] [place] [address]
== END 2017-02-23 18:30 | disposition home or self-care (01) ==
LOC: D.CATH 11:14
PROVIDERS: Internal Medicine Interventional Cardiology
DX: I25.119 Atherosclerotic heart disease of native coronary artery with unspecified angina pectoris (principal); Z01.812 Encounter for preprocedural laboratory examination

== ENCOUNTER 2018-06-01 08:15 | Inpatient (IN) | payer BC ==
[2018-05-31 09:28] LABS: HEMATOCRIT 44.3 % (42.0-54.0); HEMOGLOBIN 15.3 g/dL (13.5-17.5); MCH 32.3 pg (26.0-34.0); MCHC 34.5 g/dL (31.0-37.0); MCV 93.5 fL (80.0-100.0); MEAN PLATELET VOLUME 9.2 fL (7.4-10.4); RBC 4.74 10x6/uL (4.20-6.10); RDW 13.8 % (11.5-14.5)
[~2018-06-01] VITALS: Ht 172.7 cm; Wt 68.0 kg
--- NOTE | ~2018-06-01 | CN ---
PATIENT NAME:BERTHA BERKOWITZ MEDICAL RECORD: [id number] : 63 LOCATION:TE.2301 ADMIT DATE: 06/02/18 ACCOUNT: [id number] CONSULTING PHYSICIAN: PIYUSH MONGE MD REFERRING PHYSICIAN: JEMAL HERNANDES MD DATE OF CONSULTATION: 06/02/2018 HISTORY OF PRESENT ILLNESS: A 53-year-old gentleman well known to me with history of coronary artery disease, status post stenting with preserved diastolic function. Postprocedure, had episode of hematemesis with coffee-ground emesis, questionable aspiration, has a history obstructive pulmonary disease. LV function had been normal in the past. We are asked to see him concerning his cardiovascular status. PAST MEDICAL HISTORY: Includes: 1. History of dyslipidemia. 2. Obstructive pulmonary disease. 3. Coronary artery disease as described above. MEDICATIONS: Typically include albuterol 1 puff q.4 hours, Plavix 75 every day, Crestor 10 mg p.o. every day, aspirin 325 every day, montelukast 10 mg q.h.s. SOCIAL HISTORY: [place] here [place] town. Easily takes care of all his ADLs. No set exercise program. REVIEW OF SYSTEMS: The patient reports easy bruising but reports no swollen glands. The patient reports no fever, no night sweats, no significant weight gain, no significant weight loss. No significant exercise tolerance. The patient reports no dry eyes, no irritation, no vision change. Patient reports no difficulty hearing and no ear pain. Patient reports no frequent nose bleeds or nose and sinus problems. Patient reports on arm pain on exertion. No shortness of breath while lying down. No history of heart murmur. Patient reports no cough, no wheezing or coughing up blood. Patient reports no abdominal pain, no vomiting. Normal appetite. No diarrhea and not vomiting blood. No nausea and no constipation. Patient reports no incontinence. No difficulty urinating. No hematuria. No increased frequency. Patient reports no muscle aches. No weakness, no arthralgias, no back pain. No swelling of the extremities. Patient reports no abnormal mole, no jaundice, no rashes. Reports no loss of consciousness. No weakness and no numbness. No seizures, dizziness, or headaches. The patient reports no depression, no sleep disturbance, feeling safe in a relationship and no alcohol abuse. Patient reports on fatigue. Reports no runny nose or sinus pressure. No itching, no hives, and no frequent sneezing. PHYSICAL EXAMINATION: GENERAL: Uncomfortable-appearing gentleman secondary to NG tube. No acute distress. VITAL SIGNS: Blood pressure 145/88, pulse 88 and regular. HEENT: Normocephalic and atraumatic. NECK: No bruits noted. HEART: Regular. LUNGS: Fair air excursion, limited exam. ABDOMEN: Soft and nontender. EXTREMITIES: Pulses well preserved, 2+ with no edema. CONSULT REPORT [id number] BERTHA BERKOWITZ IMPRESSION: Stable CV standpoint. LV function normal on echo. Okay from a cardiovascular standpoint to proceed with EGD as needed. No evidence of congestive heart failure on exam or by echocardiographic study. TRANSINT:[id number] Voice Confirmation ID: [id number] DOCUMENT ID: [id number] PIYUSH MONGE MD at 1302 CC: [id number] DICTATION DATE: 06/02/18 1630 BREWERY PUMPER: 06/02/18 2303 ADM IN [place] [id number] [place] [address]
--- NOTE | ~2018-06-01 | EC ---
PATIENT:BERTHA BERKOWITZ DATE OF SERVICE: 06/02/18 SEX: M MEDICAL RECORD: [id number] DATE OF : 63 LOCATION:D.[facility] [place] AGE OF PATIENT: 53 ADMISSION DATE: 06/02/18 REFERRING PHYSICIAN: INTERPRETING PHYSICIAN: DEE GAMA MD ECHOCARDIOGRAM REPORT ECHO CHARGES 4 ECHO COMPLETE Date: 06/02/18 CLINICAL DIAGNOSIS: SOB ECHOCARDIOGRAPHIC MEASUREMENTS (adult normal given) AC root (d.<3.7cm) 4.0 cm LV Septum d (<1.2 cm> 1.5 cm Valve Excursion 1.8 cm LV Septum (systole) 1.8 cm Left Atria (s.<4.0cm> 3.2 cm LVPW d(<1.2cm) 1.7 cm RV (d.<2.3cm) 3.3 cm LVPW (sytole) 2.0 cm LV diastole(<5.6CM) 4.9 cm MV E-F(>70mm/sec) cm LV systole 3.3 cm LVOT Diameter 1.9 cm MV exc.(>10mm) cm Est.ejection fraction (50-75%) % DOPPLER: LVIT cm/sec A 102 cm/sec E 75.0 cm/sec LA cm/sec RVSP 24 mmHg LVOT 126 cm/sec AOP1/2T m/s Asc. Ao 171 cm/sec RVOT cm/sec RA cm/sec PA cm/sec AV Gradient Peak 11.65mmHg AV Mean 5.48 mmHg AV Area 2.6 cm MV Gradient Peak 4.52 mmHg MV Mean 2.01 mmHg MV Area cm COMMENTS: Manager Combination: 2 EUGENE SAL[employer] Lab Technician: 3 Dr. Artis TAPE# PACS Pericardial Effusion N DATE OF SERVICE: 06/03/2018 FINDINGS: 1. Left ventricular chamber size is within normal limits. Left ventricular systolic function is normal. Overall ejection fraction estimated 60%. 2. Left atrium, right atrium, and right ventricular chamber sizes are within normal limits. 3. Valvular structures have normal structure and motion. 4. Doppler interrogation reveals no significant valvular insufficiency or stenosis and pulmonary systolic pressure is normal estimated at 24 mmHg. ECHOCARDIOGRAM REPORT [id number] BERTHA BERKOWITZ 5. No evidence of pericardial effusion or left ventricular thrombus. TRANSINT:[id number] Voice Confirmation ID: [id number] DOCUMENT ID: [id number] DEE GAMA MD at 1031 CC: [id number] DICTATION DATE: 06/03/18 1159 [place] COUNSEL: 06/03/18 1413 DIS IN 06/05/18 [place] [id number] [place] [id number]
--- NOTE | ~2018-06-01 | OP ---
PATIENT NAME: BERTHA BERKOWITZ MEDICAL RECORD: [id number] :63 LOCATION:D.[facility] D.2301 ADMISSION DATE:06/02/18 SURGEON: JEMAL HERNANDES MD DATE OF OPERATION: 06/01/2018 PREOPERATIVE DIAGNOSES: 1. Intractably symptomatic external hemorrhoids. 2. Hematochezia. 3. Anal prolapse with third-degree internal hemorrhoidal prolapse of the anus. POSTOPERATIVE DIAGNOSES: 1. Intractably symptomatic external hemorrhoids. 2. Hematochezia. 3. Anal prolapse with third-degree internal hemorrhoidal prolapse of the anus. 4. Six sessile colorectal polyps ranging in size from 5 mm to 1.4 cm. 5. Large pedunculated anorectal polypoid mass, which is 3.5 cm in length and suspicious for a malignancy. PROCEDURES: 1. Total colonoscopy to cecum. 2. Hot biopsy forceps polypectomies times 6. 3. Anal evaluation under anesthesia. 4. Transanal excision of anorectal mass. 5. Procedure for prolapse and hemorrhoids. SURGEON: Jemal Hernandes MD ROLLER EMBOSSER: None. BLOOD LOSS: Minimal. ANESTHESIA: General. COMPLICATIONS: None. The risks, possible complications, and alternatives to the procedure were explained to the patient. He elects to proceed. OPERATIVE COURSE: The patient was conveyed to the operating room electively on 06/01/2018. General anesthesia was induced by the anesthesia staff. The patient was placed in the Brock position. A digital rectal examination was performed. The polypoid mass could be felt. A colonoscope was inserted through the anus. The polypoid mass was identified immediately. A colonoscope was inserted to the cecum. The appendiceal orifice was identified. The prep was adequate. I slowly withdrew the endoscope. I irrigated and aspirated extensively. Six colorectal polyps were noted and they were removed in their entireties utilizing the hot biopsy forceps polypectomy technique. A retroflexed view was obtained in the rectum. The pullback time was greater than 18 minutes. I then unretroflexed the scope and removed it under direct vision. The patient was then placed in the lithotomy position with the buttocks taped laterally. The anus and perianal areas were sterilely prepped and draped. OPERATIVE REPORT [id number] BERTHA BERKOWITZ U-shaped anal retractors were placed. I identified the polypoid mass at 2 o'clock. I was able to prolapse out through the anus. It did not have much of a stalk. I was able to amputate the mass utilizing the Harmonic scalpel. The PPH dilator and clear retractor were placed. The clear retractor was sutured to the surrounding anoderm with 2-0 silks. A pursestring suture of 2-0 Prolene was applied 1 cm cephalad to the clear retractor. This was a mucosal pursestring suture. The PPH stapling device was inserted with the anvil cephalad to the pursestring suture, which was then tightened and tied. I then engaged the PPH stapling device. It was held in place for 2 minutes and then fired. It was removed. There was an entire donut of mucosal tissue and hemorrhoidal tissue within the stapling device. Bleeding along the anastomotic staple line was controlled with lcagar-na-ywhia 3-0 Vicryls. Gelfoam was applied within the anus and lower rectum. A combination of Marcaine and a steroid preparation was used to infiltrate the perianal tissues. A topical anesthetic ointment was applied to the external hemorrhoids. The patient was then extubated and conveyed to the postanesthesia care unit, where he was in stable condition. TRANSINT:[id number] Voice Confirmation ID: [id number] DOCUMENT ID: [id number] JEMAL HERNANDES MD at 1426 CC: OK MARES DO and PIYUSH MONGE MD [id number] DICTATION DATE: 06/01/18 165 ELECTRICAL REPAIRER: 06/01/18 1930 ADM IN [place] [id number] [place] [id number]
[~2018-06-01 08:15] MED LIST changes: +AMBIEN10 MG PO; +ARNUITY ELLIP200 MCG INH; +ASPIRIN325 MG PO; +BEVESPI AEROSPHERE INH; +CRESTOR10 MG PO; +FLUTICASONE PRO16 GM NASAL; +MULTI-DAY VITAM1 TAB PO; +SINGULAIR10 MG PO
[2018-06-01 09:07] VITALS: BP 102/71; BMI 25.1
[2018-06-02] VITALS (16 sets, daily range): BP systolic 103–150; BP diastolic 75–107; Ht 172.7 cm; Wt 68.0 kg
[2018-06-02 08:34] LABS: HEMOGLOBIN 15.2 g/dL (13.5-17.5); MCH 32.1 pg (26.0-34.0); MCHC 34.5 g/dL (31.0-37.0); MEAN PLATELET VOLUME 9.3 fL (7.4-10.4); PLATELET COUNT 345 10x3/uL (130-400); RBC 4.73 10x6/uL (4.20-6.10); RDW 13.6 % (11.5-14.5)
[2018-06-02 08:37] LABS: CALC OSMOLALITY 284 mosm/kg (275-300); CALCIUM 9.7 mg/dL (8.5-10.1); CARBON DIOXIDE 27.3 mmol/L (21.0-32.0); CHLORIDE - SERUM 102 mmol/L (98-107); GLUCOSE 112 mg/dL (74-106); POTASSIUM - SERUM 4.5 mmol/L (3.5-5.1); SODIUM 143 mmol/L (136-145); UREA NITROGEN 10 mg/dL (7-18); eGFR NON AFRICAN AMERICAN 83 mL/min (90-120)
[2018-06-02 09:11] LABS: LYMPHOCYTES 8 % (15-50); MONOCYTES 6 % (2-11); NEUTROPHILS 78 % (40-80)
[2018-06-02 09:12] LABS: ANISOCYTOSIS OCC; ROULEAUX OCC
[2018-06-02 09:13] LABS: PLATELET ESTIMATE NORMAL
[2018-06-02 13:49] LABS: APTT 29.5 SECONDS (22.8-39.4); INR 1.11 (0.85-1.17); PROTIME 13.9 SECONDS (11.6-15.0)
[2018-06-02 13:50] LABS: D-DIMER-QUANTITATIVE 1.64 ug/mLFEU (0.20-0.54)
[2018-06-02 13:57] LABS: HEMATOCRIT 42.1 % (42.0-54.0); HEMOGLOBIN 14.4 g/dL (13.5-17.5)
[2018-06-02 18:55] LABS: HEMATOCRIT 42.7 % (42.0-54.0); HEMOGLOBIN 14.8 g/dL (13.5-17.5)
[2018-06-03] VITALS (21 sets, daily range): BP systolic 103–145; BP diastolic 65–120
[2018-06-03 04:34] LABS: BASOPHILS 0.1 % (0-2); EOSINOPHILS 0 % (0-7); HEMATOCRIT 40.8 % (42.0-54.0); HEMOGLOBIN 13.9 g/dL (13.5-17.5); IMMATURE GRANULOCYTES 0.3 % (0-5); LYMPHOCYTES 5.8 % (15-50); MCH 31.4 pg (26.0-34.0); MCHC 34.1 g/dL (31.0-37.0); MCV 92.3 fL (80.0-100.0); MEAN PLATELET VOLUME 9.1 fL (7.4-10.4); MONOCYTES 5.3 % (2-11); NEUTROPHILS 88.5 % (40-80); PLATELET COUNT 311 10x3/uL (130-400); RBC 4.42 10x6/uL (4.20-6.10); RDW 13.7 % (11.5-14.5); WBC 18.3 10x3/uL (4.8-10.8)
[2018-06-03 04:45] LABS: INR 1.13 (0.85-1.17); PROTIME 14.1 SECONDS (11.6-15.0)
[2018-06-03 05:50] LABS: ALBUMIN 3.6 g/dL (3.4-5.0); ALKALINE PHOSPHATASE 92 U/L (46-116); ALT (SGPT) 45 U/L (10-68); BILIRUBIN - TOTAL 0.44 mg/dL (0.2-1.3); CALC OSMOLALITY 278 mosm/kg (275-300); CALCIUM 9.1 mg/dL (8.5-10.1); CARBON DIOXIDE 30.6 mmol/L (21.0-32.0); CHLORIDE - SERUM 99 mmol/L (98-107); GLUCOSE 118 mg/dL (74-106); MAGNESIUM - SERUM 1.7 mg/dL (1.8-2.4); PHOSPHOROUS 3.8 mg/dL (2.5-4.9); POTASSIUM - SERUM 4.2 mmol/L (3.5-5.1); SODIUM 138 mmol/L (136-145); TROPONIN-I 0.022 ng/mL (0.000-0.060); eGFR NON AFRICAN AMERICAN 83 mL/min (90-120)
[2018-06-03 05:51] LABS: UREA NITROGEN 18 mg/dL (7-18)
[2018-06-03 13:28] LABS: HEMATOCRIT 39.3 % (42.0-54.0); HEMOGLOBIN 13.4 g/dL (13.5-17.5)
[2018-06-03 19:03] LABS: HEMATOCRIT 38.5 % (42.0-54.0); HEMOGLOBIN 13.1 g/dL (13.5-17.5)
[2018-06-04 03:00] VITALS: BP 118/72
[2018-06-04 04:07] LABS: HEMATOCRIT 40.1 % (42.0-54.0); HEMOGLOBIN 13.6 g/dL (13.5-17.5)
[2018-06-04 04:08] LABS: BASOPHILS 0.1 % (0-2); EOSINOPHILS 0 % (0-7); HEMATOCRIT 40.1 % (42.0-54.0); HEMOGLOBIN 13.7 g/dL (13.5-17.5); IMMATURE GRANULOCYTES 0.6 % (0-5); LYMPHOCYTES 10.5 % (15-50); MCH 31.9 pg (26.0-34.0); MCHC 34.2 g/dL (31.0-37.0); MCV 93.5 fL (80.0-100.0); MEAN PLATELET VOLUME 9.2 fL (7.4-10.4); MONOCYTES 9.2 % (2-11); NEUTROPHILS 79.6 % (40-80); PLATELET COUNT 299 10x3/uL (130-400); RBC 4.29 10x6/uL (4.20-6.10); RDW 13.8 % (11.5-14.5); WBC 17.8 10x3/uL (4.8-10.8)
[2018-06-04 04:31] LABS: ALBUMIN 3.5 g/dL (3.4-5.0); ALKALINE PHOSPHATASE 83 U/L (46-116); ALT (SGPT) 50 U/L (10-68); BILIRUBIN - TOTAL 0.37 mg/dL (0.2-1.3); CALC OSMOLALITY 280 mosm/kg (275-300); CALCIUM 8.9 mg/dL (8.5-10.1); CARBON DIOXIDE 34.3 mmol/L (21.0-32.0); CHLORIDE - SERUM 101 mmol/L (98-107); CREATININE - SERUM 0.9 mg/dL (0.6-1.3); GLUCOSE 129 mg/dL (74-106); MAGNESIUM - SERUM 1.8 mg/dL (1.8-2.4); PHOSPHOROUS 3.4 mg/dL (2.5-4.9); POTASSIUM - SERUM 4.1 mmol/L (3.5-5.1); PROTEIN - SERUM 6.8 g/dL (6.4-8.2); SODIUM 140 mmol/L (136-145); eGFR NON AFRICAN AMERICAN > 90 mL/min (90-120)
[2018-06-04 04:47] LABS: UREA NITROGEN 12 mg/dL (7-18)
[2018-06-04 04:49] LABS: INR 1.11 (0.85-1.17); PROTIME 13.9 SECONDS (11.6-15.0)
[2018-06-04 07:29] LABS: HEMATOCRIT 40.4 % (42.0-54.0); HEMOGLOBIN 13.7 g/dL (13.5-17.5)
[2018-06-04 12:00] VITALS: BP 113/64
[2018-06-04 15:00] VITALS: BP 112/60
[2018-06-04 21:31] VITALS: BP 134/80
[2018-06-05 06:03] VITALS: BP 104/64
[2018-06-05 06:44] LABS: BASOPHILS 0.1 % (0-2); EOSINOPHILS 0 % (0-7); HEMATOCRIT 37.4 % (42.0-54.0); HEMOGLOBIN 12.5 g/dL (13.5-17.5); IMMATURE GRANULOCYTES 1.3 % (0-5); LYMPHOCYTES 7.2 % (15-50); MCH 31.1 pg (26.0-34.0); MCHC 33.4 g/dL (31.0-37.0); MEAN PLATELET VOLUME 9.2 fL (7.4-10.4); MONOCYTES 6.7 % (2-11); NEUTROPHILS 84.7 % (40-80); PLATELET COUNT 293 10x3/uL (130-400); RBC 4.02 10x6/uL (4.20-6.10); RDW 13.9 % (11.5-14.5); WBC 13.5 10x3/uL (4.8-10.8)
[2018-06-05 06:48] LABS: HELICOBACTER PYLORI IGG NEGATIVE (NEGATIVE)
[2018-06-05] MEDS ORDERED: CYCLOBENZAPRINE10 MG PO (10:45)
[2018-06-05] MEDS ORDERED: HYDROCODON-ACE1 EAC7 PO (10:45)
[2018-06-05] MEDS ORDERED: OMNICEF300 MG PO (10:45)
[2018-06-05] MEDS ORDERED: PREDNISONE20 MG PO (10:45)
[2018-06-05] MEDS ORDERED: PROTONIX40 MG PO (11:08)
== END 2018-06-05 13:58 | disposition home or self-care (01) | DRG 377 ==
LOC: D.ICU 08:15 → D.OPS 08:15 → D.M2 08:15 → D.OPS 10:30 → D.PAN 12:15 → D.OPS 12:15 → D.M2 20:07 → D.ICU 06-02 11:54 → D.MS 06-02 12:00 → D.ICU 06-02 12:00 → D.OPS 06-02 12:00 → D.MS 06-04 08:44
PROVIDERS: Anesthesiology; Internal Medicine Gastroenterology; Internal Medicine Pulmonary Disease; Surgery
PROC: 0DBP7ZX Excision of Rectum, Via Natural or Artificial Opening, Diagnostic (ICD-10-PCS; 2018-06-01)
PROC: 0DBG8ZX Excision of Left Large Intestine, Via Natural or Artificial Opening Endoscopic, Diagnostic (ICD-10-PCS; 2018-06-01 10:30)
PROC: 0DBF8ZX Excision of Right Large Intestine, Via Natural or Artificial Opening Endoscopic, Diagnostic (ICD-10-PCS; 2018-06-01 10:30)
PROC: 0W3P8ZZ Control Bleeding in Gastrointestinal Tract, Via Natural or Artificial Opening Endoscopic (ICD-10-PCS; principal; 2018-06-03 07:00)
DX: K25.4 Chronic or unspecified gastric ulcer with hemorrhage (principal); J96.01 Acute respiratory failure with hypoxia; J69.0 Pneumonitis due to inhalation of food and vomit; K22.10 Ulcer of esophagus without bleeding; J44.1 Chronic obstructive pulmonary disease with (acute) exacerbation; R33.8 Other retention of urine; K63.5 Polyp of colon; K62.2 Anal prolapse; K64.2 Third degree hemorrhoids

== ENCOUNTER 2018-07-06 10:59 | Outpatient (CLI) | payer BC ==
[~2018-07-06] VITALS: Ht 175.3 cm; Wt 81.8 kg
--- NOTE | ~2018-07-06 | OP ---
PATIENT NAME: BERTHA BERKOWITZ MEDICAL RECORD: [id number] :63 LOCATION:D.CAT ADMISSION DATE: SURGEON: PIYUSH MONGE MD DATE OF OPERATION: 07/06/2018 PROCEDURES: Left heart catheterization, selective coronary angiography, right radial approach. CATHETERS: Radial sheath, [place] catheter, AR1. The procedure was well tolerated. The patient returned to [place]. Sheath removed. Adequate hemostasis obtained. FINDINGS: Left ventriculography in 30-degree RUFFIN view: Normal wall motion and normal systolic function. CORONARY ANATOMY: LEFT MAIN: Left main is free of disease. LAD: LAD is free of disease in the diagonal system. CIRCUMFLEX: The area of previous stenting is widely patent. No evidence of restenosis. No progression of [place] disease. RIGHT CORONARY ARTERY: Right coronary is a codominant system. Right coronary is free of disease. The area of previous stenting is widely patent. No evidence of early or late restenosis. TRANSINT:[id number] Voice Confirmation ID: [id number] DOCUMENT ID: [id number] PIYUSH MONGE MD CC: [id number] DICTATION DATE: 07/06/18 1315 MEDICAL CENTER MANAGER: 07/06/18 1518 REG [facility] [address] [place] [address]
--- NOTE | ~2018-07-06 | HEMODYNAMI ---
PATIENT:BERTHA BERKOWITZ MEDICAL RECORD: [id number] : 63 LOCATION:DTamikoCAT ADMISSION DATE: 07/06/18 Generatedon:07/06/201813:15 Patient name: BERTHA BERKOWITZ Patient #: [id number] SSN: DO B: 1965 Date of study: 07/06/2018 Page: Of Hemodynamic Procedure Report Patient Data Patient Demographics Procedure consent was obtained First Name: BERTHA Gender: Male Last Name: WOO : 1965 [facility] Initial: RIKA Age: 53 year(s) Patient #: [id number] Race: Unknown Additional ID: [id number] Contact details [address]: [address] [place] [address] State: [place] City: [place] Zip code: [address] Past Medical History Allergies: No known allergies Admission Admission Data Admission Date: 07/06/2018 Admission Time: 10:59 Lab Results Lab Result Date: 07/06/2018 Lab Result Time: 0:00 Biochemistry Name Units Result Min Max BUN mg/dl 9 --(*---)-- 7 18 Creatinine mg/dl 0.9 --(-*--)-- 0.6 1.3 CBC Name Units Result Min Max Hemoglobin g/dl 15.2 --(-*--)-- 13.5 17.5 Procedure Procedure Types Cath Procedure Diagnostic Procedure [facility] w/Coronaries Procedure Description Procedure Date Procedure Date: 07/06/2018 Procedure Start Time: 12:59 Procedure End Time: 13:15 Procedure Staff Name Function Carlos Hernandez MD Performing Physician Gordo Garcia RT Monitor Olivia Krishnamurthy RT Scrub Shima Wong RN Nurse Jimenez Abad RT Steam And Power Supervisor Procedure Data Cath Procedure Fluoroscopy Diagnostic fluoroscopy Total fluoroscopy Time: 2.6 time: 2.6 min min Diagnostic fluoroscopy Total fluoroscopy dose: 314 dose: 314 mGy mGy Contrast Material Contrast Material Type Amount (ml) Isovue 300 38 Entry Location Entry Primary Successful Side Size Upsize Upsize Entry Closure Bahena ccessful Closure Location (Fr) 1 (Fr) 2 (Fr) Remarks Device Remarks Radial Right 6 Fr Mechanical artery Short Compression Estimated blood loss: 5 ml Diagnostic catheters Device Type Used For End Catheter Placement DIAGNOSTIC AR MOD 5Fr Procedure Catheter ([id number]) Procedure Complications No complications Procedure Medications Medication Administration Route Dosage 0.9% NaCl I.V. 100 ml/hr Oxygen etCO2 Nasal cannula 2 l/min Lidocaine 2% added to field 20 Heparin Flush Bag added to field 2 bags (1000units/500ml NS) Radial Cocktail added to field 1 syringe (Verapomil 2mg/Nitro 400mcg/Heparin 1500units) Versed I.V. 2 mg Fentanyl I.V. 100 mcg Versed I.V. 2 mg Fentanyl I.V. 100 mcg Versed I.V. 2 mg Hemodynamics Rest HGB: 15.2 (g/dl) Heart Rate: 82 (bpm) Pressure Samples Time Site Value (mmHg) Purpose Heart Use Rate(bpm) 13:07 LV 77/4,-1 Snapshot 108 13:07 AO 93/64(78) Pullback 85 13:07 LV 92/-4,-2 Pullback 85 Gradients Valve Time Site 1 Site 2 Mean SEP/DFP Peak To Heart Use (mmHg) (sec/min) Peak Rate (mmHg) (bpm) Aortic 13:07 LV AO 0 4 0 85 92/-4,-2 93/64(78) Calculations Valve P-P Mean Valve Index Valve Source Name Gradient Area Flow (cm2) Aortic 0 0 0 0 Snapshots Pre Cath Intra NCS Post Cath Vital Signs Time Heart Resp SPO2 etCO2 NIBP (mmHg) Rhythm Pain Sedation Rate (ipm) (%) (mmHg) Status Level (bpm) 12:47:20 72 17 100 31.4 134/87(97) NSR 0 (11) 10(A) , No pain 12:51:32 84 18 99 32 105/92(99) NSR 0 (11) 10(A) , No pain 12:55:36 75 19 96 33.6 109/84(96) NSR 0 (11) 10(A) , No pain 13:00:29 80 13 97 34.6 109/85(105) NSR 0 (11) 10(A) , No pain 13:04:35 86 17 97 29 107/84(91) NSR 0 (11) 10(A) , No pain 13:08:43 88 14 98 29.6 115/77(92) NSR 0 (11) 10(A) , No pain 13:12:51 81 15 97 0 120/83(94) NSR 0 (11) 10(A) , No pain Medications Time Medication Route Dose Verified Delivered Reason Notes E ffectiveness by by 12:40:47 0.9% NaCl I.V. 100 Carlos Shima used for ml/hr David Marvin procedure MD DUENAS 12:40:53 Oxygen etCO2 2 l/min Carlos Shima used for Nasal David Marvin procedure cannula MD DUENAS 12:40:59 Lidocaine 2% added 20ml Carlos Carlos for local to vial David David anesthetic field MD BLUNT 12:41:04 Heparin Flush added 2 bags Carlos Carlos used for Bag to [facility] procedure (1000units/500ml field MD BLUNT NS) 12:46:55 Radial Cocktail added 1 Calros Carlos used for (Verapomil to syringe David David procedure 2mg/Nitro field MD BLUNT 400mcg/Heparin 1500units) 12:56:16 Versed I.V. 2 mg Carlos Shima for DavidAbel Wong sedation MD DUENAS 12:56:24 Fentanyl I.V. 100 mcg Carlos Shima for DavidAbel Wong sedation MD DUENAS 13:02:51 Versed I.V. 2 mg Carlos Shima for St Abel Wong sedation MD DUENAS 13:02:57 Fentanyl I.V. 100 mcg Carlos Shima for DavidAbel Wong sedation MD DUENAS 13:08:45 Versed I.V. 2 mg Carlos Shima for DavidAbel Wong sedation MD DUENASagronomy supervisor Log Time Note 12:32:59 Jimenez Abad RT(R) sent for patient. Start room use. 12:33:00 Time tracking: Regular hours (M-F 7:00 - 5:00) 12:33:03 Plan of Care:Hemodynamics will remain stable., Cardiac rhythm will remain stable., Comfort level will be maintained., Respiratory function will remain adequate., Patient/ family verbilizes understanding of procedure., Procedure tolerated without complication., Recovers from procedure without complications.. 12:33:06 Signed procedure consent form obtained from patient. 12:34:02 H&P Date Dictated: 06/30/2018 Within 30 days and on chart., H&P Addendum completed by physician on day of procedure. (MUST COMPLETE FOR ALL OUTPATIENTS). 12:34:11 Patient allergic to No known allergies 12:35:44 Lab Result : BUN 9 mg/dl 12:35:44 Lab Result : Creatinine 0.9 mg/dl 12:35:44 Lab Result : Hemoglobin 15.2 g/dl 12:36:30 Patient received from Pre/Post Procedure Room to CCL 1 Alert and oriented. Tansferred to table in Supine position. 12:36:32 Warm blankets applied, and brigid hugger turned on for patient comfort. 12:36:32 Correct patient and procedure confirmed by team. 12:36:33 ECG and BP/O2 sat monitors applied to patient. 12:40:47 0.9% NaCl 100 ml/hr I.V. was administered by Shima Wong RN; used for procedure; 12:40:53 Oxygen 2 l/min etCO2 Nasal cannula was administered by Shima Wong RN; used for procedure; 12:40:59 Lidocaine 2% 20ml vial added to field was administered by Carlos Hernandez MD; for local anesthetic; 12:41:04 Heparin Flush Bag (1000units/500ml NS) 2 bags added to field was administered by Carlos Hernandez MD; used for procedure; 12:46:13 Vital chart was started 12:46:55 Radial Cocktail (Verapomil 2mg/Nitro 400mcg/Heparin 1500units) 1 syringe added to field was administered by Carlos Hernandez MD; used for procedure; 12:51:24 Baseline sample Acquired. 12:51:30 Rhythm: sinus rhythm 12:51:32 Full Disclosure recording started 12:51:33 Pre-procedure instructions explained to patient. 12:51:33 Pre-op teaching completed and patient verbalized understanding. 12:51:34 Family in waiting room. 12:51:37 Patient NPO since Breakfast. 12:51:39 Is the patient allergic to Iodine/contrast media? No. 12:52:33 Is patient on blood thinner?Yes 12:52:34 Patient diabetic? No. 12:52:38 Previous problem with sedation/anesthesia? No ? 12:52:39 Snore? Yes 12:52:40 Sleep apnea? No 12:52:41 Deviated septum? No 12:52:42 Opens mouth fully? Yes 12:52:42 Sticks out tongue? Yes 12:52:47 Airway obstruction? Yes COPD' 12:52:50 Dentures? Yes OUT 12:52:53 Modified Juan's test Ulnar < 7 seconds 12:52:55 Patient pain scale 0/10 ?. 12:53:01 IV patent on arrival in left forearm with 0.9% NaCl at [facility]. 12:53:31 Lab results completed and on chart. 12:53:38 Right Radial & Right Groin area was prepped with chlora-prep and draped in sterile fashion 12:53:40 Alarms reviewed by R. N. 12:53:40 Sharps counted by scrub and verified by R.N. 12:54:01 Use device set Radial Dx or PCI 12:54:02 ACIST Syringe (35461) opened to sterile field. 12:54:02 Medline Cath Pack ([id number]) opened to sterile field. 12:54:03 Bag Decanter (2002S) opened to sterile field. 12:54:03 ACIST Hand Control (19307) opened to sterile field. 12:54:04 ACIST Manifold (39082) opened to sterile field. 12:54:04 Tegaderm 4 x 4 (1626W) opened to sterile field. 12:54:05 MBrace Wrist Support ([id number]) opened to sterile field. 12:54:06 SHEATH 6FR Slender (85-6849) opened to sterile field. 12:54:07 DIAGNOSTIC WIRE .035 260cm J wire (163904) opened to sterile field. 12:54:13 Physician arrived 12:54:13 --------ALL STOP TIME OUT------ 12:54:14 Final Timeout: patient, procedure, and site verified with staff and physician. All members of the team are in agreement. 12:54:15 Right Radial & Right Groin site verified by team. 12:54:17 Physical assessment completed. ASA score P 2 - A patient with mild systemic disease as per Carlos Hernandez MD. 12:54:19 Sedation plan: IV Moderate Sedation Medication:Versed, Fentanyl 12:56:16 Versed 2 mg I.V. was administered by Shima Wong RN; for sedation; 12:56:24 Fentanyl 100 mcg I.V. was administered by Shima Wong RN; for sedation; 12:57:23 Zero performed for pressure channel P1 12:59:05 Procedure started. 12:59:13 Local anesthetic to right radial artery with Lidocaine 2% by Carlos Hernandez MD.INITIAL ACCESS ONLY 13:00:04 Zero performed for pressure channel P1 13:00:10 Zero performed for pressure channel P1 13:00:21 Zero performed for pressure channel P1 13:00:50 Zero performed for pressure channel P1 13:00:52 Zero performed for pressure channel P1 13:01:47 A 6 Fr Short sheath was inserted into the Right Radial artery 13:02:51 Versed 2 mg I.V. was administered by Shima Wong RN; for sedation; 13::57 Fentanyl 100 mcg I.V. was administered by Shima Wong RN; for sedation; 13:03:54 LCA angiography performed. 13:06:11 A DIAGNOSTIC AR MOD 5Fr Catheter ([id number]) was advanced over the wire and used for Procedure. 13:07:13 LV gram done using RUFFIN 13:07:16 Injector settings: Ml/sec: 5, Volume: 15, 13:07:21 EF : 55 % 13:07:39 RCA angiography performed. 13:08:39 Catheter removed. 13:08:43 TR BAND Standard ([id number]) opened to sterile field. 13:08:45 Versed 2 mg I.V. was administered by Shima Wong RN; for sedation; 13:08:51 Sheath removed intact; hemostasis achieved with Mechanical Compression to the Right Radial artery. 13:08:53 Procedure ended.(Physican Out) 13:09:15 Fluoroscopy time 02.60 minutes. 13:09:18 Fluoroscopy dose: 314 mGy 13:09:18 Flurop Dose total: 314 13:09:25 Contrast amount:Isovue 300 38ml. 13:11:48 Sharps counted by scrub and verified by R.N. 13:11:51 TR band inflated with 12cc of air. 13:11:53 Insertion/operative site no bleeding no hematoma. 13:11:59 Post right radial artery:stable, soft, clean and dry 13:13:43 Post Procedure Pulses reassessed and unchanged 13:13:49 Post-procedure physical assessment completed. ASA score P 2 - A patient with mild systemic disease as per Carlos Hernandez MD. 13:13:52 Post procedure rhythm: unchanged. 13:13:55 Estimated blood loss: 5 ml 13:13:57 Post procedure instruction explained to patient.Patient verbalizes understanding. 13:14:00 Patient needs reinforcement of post procedure teaching. 13:15:23 Procedure and supply charges have been captured, reviewed, submitted and are correct. 13:15:24 Procedure Complication : No complications 13:15:26 Vital chart was stopped 13:15:27 See physician's report for complete and final results. 13:15:29 Report given to Pre/Post Procedure Room. 13:15:31 Patient transfered to Pre/Post Procedure Room with Stretcher. 13:15:33 Procedure ended. 13:15:33 Full Disclosure recording stopped 13:15:37 End room use (Document Last) Device Usage Item Name Manufacture Quantity Catalog Hospital Part Current Minimal Lot# / Number Charge Number Stock Stock Serial# Code ACIST Acist 1 11302 834715 959330 084254 20 Syringe Medical (55495) Systems Inc Medline Medline 1 [id number] 802405 09948 988154 5 Cath Pack ([id number]) Bag Microtek 1 2001S 139786 61901 449073 5 Decanter Medical Inc. () ACIST Hand Acist 1 00360 146364 786036 039632 5 Control Medical (81730) Systems Inc ACIST Acist 1 08803 730963 603679 002556 5 Manifold Medical (02310) Systems Inc Tegaderm 4 3M 1 1626W 394974 977286 463092 5 x 4 (1626W) MBrace Advanced 1 140-0250-00 029464 05986 793570 5 Wrist Vascular Support Dynamics ([id number]) SHEATH 6FR Terumo 1 [id number] 089715 610372 129839 5 Slender (80-1060) DIAGNOSTIC St Benjamin 1 546207 145271 221190 670886 30 WIRE .035 260cm J wire (662816) DIAGNOSTIC Cardinal 1 [id number] 489781 999208 424627 15 AR MOD 5Fr Health Catheter (521880N) TR BAND Terumo 1 [id number] 522655 237349 469195 40 Standard ([id number]) Signature Audit [place] Stage Time Signature Unsigned Intra-Procedure 07/06/2018 Gordo Garcia 1:15:51 PM RT(R) Signatures Monitor : Gordo Garcia RT Signature : Date : Time : [place] [id number] [facility] [place] [address]
[~2018-07-06 10:59] MED LIST changes: +CYCLOBENZAPRINE10 MG PO; +HYDROCODON-ACE1 EAC7 PO; +OMNICEF300 MG PO; +PREDNISONE20 MG PO; +PROTONIX40 MG PO
[2018-07-06 11:51] VITALS: BP 132/84; Ht 175.3 cm; Wt 81.8 kg
[2018-07-06 12:01] LABS: BASOPHILS 0.3 % (0-2); EOSINOPHILS 6.8 % (0-7); HEMATOCRIT 43.2 % (42.0-54.0); HEMOGLOBIN 15.2 g/dL (13.5-17.5); IMMATURE GRANULOCYTES 0.6 % (0-5); LYMPHOCYTES 24.8 % (15-50); MCH 32.7 pg (26.0-34.0); MCHC 35.2 g/dL (31.0-37.0); MCV 92.9 fL (80.0-100.0); MEAN PLATELET VOLUME 8.9 fL (7.4-10.4); MONOCYTES 7.3 % (2-11); NEUTROPHILS 60.2 % (40-80); RBC 4.65 10x6/uL (4.20-6.10); RDW 14.4 % (11.5-14.5); WBC 9.9 10x3/uL (4.8-10.8)
[2018-07-06 12:04] LABS: PLATELET COUNT 375 10x3/uL (130-400)
[2018-07-06 12:13] LABS: CALC OSMOLALITY 280 mosm/kg (275-300); CALCIUM 8.7 mg/dL (8.5-10.1); CARBON DIOXIDE 24.2 mmol/L (21.0-32.0); CHLORIDE - SERUM 105 mmol/L (98-107); CREATININE - SERUM 0.9 mg/dL (0.6-1.3); GLUCOSE 87 mg/dL (74-106); SODIUM 142 mmol/L (136-145); UREA NITROGEN 9 mg/dL (7-18); eGFR NON AFRICAN AMERICAN > 90 mL/min (90-120)
== END 2018-07-06 15:48 | disposition home or self-care (01) ==
LOC: D.CATH 10:59
PROVIDERS: Internal Medicine Interventional Cardiology
DX: I25.119 Atherosclerotic heart disease of native coronary artery with unspecified angina pectoris (principal); Z95.5 Presence of coronary angioplasty implant and graft; Z01.812 Encounter for preprocedural laboratory examination

== ENCOUNTER → 2018-07-14 14:21 | Outpatient (CLI) | payer BC ==
[2018-07-06 11:51] VITALS: BMI 26.6
== END | disposition home or self-care (01) ==
LOC: D.RAD 08:00
DX: J44.9 Chronic obstructive pulmonary disease, unspecified (principal)

== ENCOUNTER → 2018-10-18 10:37 | Outpatient (CLI) | payer BC ==
[2018-07-06 11:51] VITALS: BMI 26.6
[2018-10-19 08:16] LABS: IMMUNOGLOBULIN A 316 mg/dL (90-386); IMMUNOGLOBULIN G 629 mg/dL (700-1600)
== END | disposition home or self-care (01) ==
LOC: D.RT 10:37
PROVIDERS: ATTEND Internal Medicine Pulmonary Disease
DX: J44.1 Chronic obstructive pulmonary disease with (acute) exacerbation (principal)

== ENCOUNTER → 2019-08-09 11:54 | Outpatient (CLI) | payer BC ==
[2018-07-06 11:51] VITALS: BMI 26.6
== END | disposition home or self-care (01) ==
LOC: D.RAD 11:54
PROVIDERS: ATTEND Internal Medicine Pulmonary Disease
DX: J44.9 Chronic obstructive pulmonary disease, unspecified (principal)

== ENCOUNTER → 2019-08-10 13:49 | Outpatient (CLI) | payer BC ==
[2018-07-06 11:51] VITALS: BMI 26.6
== END | disposition home or self-care (01) ==
LOC: D.CT 13:49
PROVIDERS: ATTEND Internal Medicine Pulmonary Disease
DX: R93.89 Abnormal findings on diagnostic imaging of other specified body structures (principal)

== ENCOUNTER 2019-09-21 12:00 | Outpatient (CLI) | payer BC ==
[~2019-09-21] VITALS: Ht 175.3 cm; Wt 75.0 kg
[2019-09-21 07:03] LABS: BASOPHILS 0.2 % (0-2); EOSINOPHILS 2.4 % (0-7); HEMATOCRIT 46.2 % (42.0-54.0); HEMOGLOBIN 15.5 g/dL (13.5-17.5); IMMATURE GRANULOCYTES 0.5 % (0-5); LYMPHOCYTES 22.2 % (15-50); MCH 31.3 pg (26.0-34.0); MCHC 33.5 g/dL (31.0-37.0); MCV 93.3 fL (80.0-100.0); MEAN PLATELET VOLUME 9.2 fL (7.4-10.4); MONOCYTES 9.6 % (2-11); NEUTROPHILS 65.1 % (40-80); PLATELET COUNT 356 10x3/uL (130-400); RBC 4.95 10x6/uL (4.20-6.10); RDW 13.6 % (11.5-14.5); WBC 10.4 10x3/uL (4.8-10.8)
[2019-09-21 07:14] LABS: ANION GAP 10.1 mmol/L (8-16); CALCIUM 8.9 mg/dL (8.5-10.1); CREATININE - SERUM 1.1 mg/dL (0.6-1.3); POTASSIUM - SERUM 4.1 mmol/L (3.5-5.1)
[2019-09-21 07:15] LABS: INR 1.07 (0.85-1.17); PROTIME 13.9 SECONDS (11.6-15.0)
[2019-09-21 07:16] LABS: APTT 35.9 SECONDS (22.8-39.4)
[2019-09-21 08:03] VITALS: BP 112/72; Ht 175.3 cm; Wt 75.0 kg
== END 2019-09-21 12:30 | disposition home or self-care (01) ==
LOC: D.SP 12:00
PROVIDERS: Specialist; ATTEND Internal Medicine Pulmonary Disease
DX: R91.8 Other nonspecific abnormal finding of lung field (principal)

== ENCOUNTER → 2019-11-14 12:40 | Outpatient (CLI) | payer BC ==
[2019-09-21 08:03] VITALS: BMI 24.4
[2019-11-14 13:38] LABS: ALBUMIN 4.1 g/dL (3.4-5.0); BILIRUBIN - DIRECT 0.11 mg/dL (0.00-0.30); BILIRUBIN - INDIRECT 0.22 mg/dL (0.00-1.00); BILIRUBIN - TOTAL 0.33 mg/dL (0.2-1.3); PROTEIN - SERUM 7.7 g/dL (6.4-8.2)
[2019-11-15 11:08] LABS: FUNGUS STAIN Final report (())
== END | disposition home or self-care (01) ==
LOC: D.LAB 12:40
PROVIDERS: ATTEND Internal Medicine Pulmonary Disease
DX: J45.909 Unspecified asthma, uncomplicated (principal); B44.9 Aspergillosis, unspecified

== ENCOUNTER → 2020-02-07 11:14 | Outpatient (CLI) | payer BC ==
[2019-09-21 08:03] VITALS: BMI 24.4
== END | disposition home or self-care (01) ==
LOC: D.RAD 11:14
PROVIDERS: ATTEND Internal Medicine Pulmonary Disease
DX: J45.909 Unspecified asthma, uncomplicated (principal)

== ENCOUNTER → 2020-02-19 07:44 | Outpatient (CLI) | payer BC ==
[2019-09-21 08:03] VITALS: BMI 24.4
== END | disposition home or self-care (01) ==
LOC: D.CT 07:44
PROVIDERS: ATTEND Internal Medicine Pulmonary Disease
DX: B44.9 Aspergillosis, unspecified (principal)

== ENCOUNTER → 2020-03-22 08:01 | Outpatient (CLI) | payer BC ==
[2019-09-21 08:03] VITALS: BMI 24.4
--- NOTE | ~2020-03-22 | EC ---
PATIENT:BERTHA BERKOWITZ DATE OF SERVICE: 03/22/20 SEX: M MEDICAL RECORD: [id number] DATE OF : 63 [facility] AGE OF PATIENT: 54 ADMISSION DATE: 03/22/20 REFERRING PHYSICIAN: INTERPRETING PHYSICIAN: PIYUSH MONGE MD ECHOCARDIOGRAM REPORT ECHO CHARGES 4 ECHO COMPLETE Date: 03/22/20 CLINICAL DIAGNOSIS: CAD/ASSESS EF AND VALVES SOB HX OF STENTS ECHOCARDIOGRAPHIC MEASUREMENTS (adult normal given) AC root (d.<3.7cm) 3.0 cm LV Septum d (<1.2 cm> 0.3 cm Valve Excursion 1.4 cm LV Septum (systole) 1.5 cm Left Atria (s.<4.0cm> 4.3 cm LVPW d(<1.2cm) 1.4 cm RV (d.<2.3cm) 3.0 cm LVPW (sytole) 1.7 cm LV diastole(<5.6CM) 4.3 cm MV E-F(>70mm/sec) cm LV systole 3.0 cm LVOT Diameter 2.0 cm MV exc.(>10mm) 0.90 cm Est.ejection fraction (50-75%) % DOPPLER: LVIT cm/sec A 65.0 cm/sec E 78.0 cm/sec LA cm/sec RVSP 17 mmHg LVOT 121 cm/sec AOP1/2T m/s Asc. Ao 162 cm/sec RVOT 102 cm/sec RA cm/sec PA 127 cm/sec AV Gradient Peak 10.52mmHg AV Mean 5.75 mmHg AV Area 2.3 cm MV Gradient Peak 3.73 mmHg MV Mean 1.72 mmHg MV Area cm COMMENTS: Magnesium Mill Operator: 2 EUGENE SALMERON Insulation Professional: 3 Dr. Artis TAPE# PACS Pericardial Effusion N DATE OF SERVICE: Adequate 2D, color flow imaging, spectral Doppler, and M-Mode. Mild LVH. LV internal dimensions are normal. Wall motion normal. EF greater than or equal to 55%. Aortic valve is tricuspid. No evidence of stenosis by Doppler interrogation. Left atrium is mildly dilated at 4.3 cm. Mitral valve shows no prolapse. Trivial MR. Right-sided chambers are grossly normal. Trivial TR. ECHOCARDIOGRAM REPORT [id number] BERTHA BERKOWITZ TRANSINT:[id number] Voice Confirmation ID: [id number] DOCUMENT ID: [id number] PIYUSH MONGE MD CC: [id number] DICTATION DATE: 03/23/20 1015 GENERAL COUNSEL: 03/23/202119 DEP CLI 03/22/20 [place] [id number] [place] [id number]
== END | disposition home or self-care (01) ==
LOC: D.HCCECHO 08:01
PROVIDERS: ATTEND Internal Medicine Interventional Cardiology
DX: I25.10 Atherosclerotic heart disease of native coronary artery without angina pectoris (principal)

== ENCOUNTER 2020-03-28 11:05 | Day surgery (SDC) | payer BC ==
[~2020-03-28] VITALS: Ht 175.3 cm; Wt 74.8 kg
[2020-03-28 11:15] LABS: BASOPHILS 0.3 % (0-2); EOSINOPHILS 3.9 % (0-7); HEMATOCRIT 48.4 % (42.0-54.0); HEMOGLOBIN 16.5 g/dL (13.5-17.5); IMMATURE GRANULOCYTES 0.3 % (0-5); LYMPHOCYTES 25.3 % (15-50); MCH 31.3 pg (26.0-34.0); MCHC 34.1 g/dL (31.0-37.0); MCV 91.7 fL (80.0-100.0); MEAN PLATELET VOLUME 9.3 fL (7.4-10.4); MONOCYTES 7.8 % (2-11); NEUTROPHILS 62.4 % (40-80); PLATELET COUNT 340 10x3/uL (130-400); RBC 5.28 10x6/uL (4.20-6.10); RDW 13.5 % (11.5-14.5); WBC 8.9 10x3/uL (4.8-10.8)
[2020-03-28 11:17] LABS: INR 0.98 (0.85-1.17)
[2020-03-28 11:27] LABS: ALKALINE PHOSPHATASE 119 U/L (30-120); ALT (SGPT) 23 U/L (10-68); CALC OSMOLALITY 275 mosm/kg (275-300); CARBON DIOXIDE 27.3 mmol/L (21.0-32.0); CHLORIDE - SERUM 105 mmol/L (98-107); GLUCOSE 97 mg/dL (74-106); POTASSIUM - SERUM 4.2 mmol/L (3.5-5.1); PROTEIN - SERUM 7.4 g/dL (6.4-8.2); SODIUM 138 mmol/L (136-145); UREA NITROGEN 13 mg/dL (7-18); eGFR NON AFRICAN AMERICAN 82 mL/min (90-120)
[2020-03-28] MEDS ORDERED: PROAIR HFA8.5 G1 INH (12:16)
[2020-03-28] MEDS ORDERED: IPRAT-ALBUT 0.5-3 ML UPD (12:16)
[2020-03-28] MEDS ORDERED: FLOVENT HFA 11012 GM INH (12:17)
[2020-03-28] MEDS ORDERED: MUCINEX DM ER1 EAC1 PO (12:17)
[2020-03-28] MEDS ORDERED: SPORANOX100 MG PO (12:18)
[2020-03-28] MEDS ORDERED: TESSALON PERLE100 MG PO (12:18)
[2020-03-28] MEDS ORDERED: STIOLTO RESPIMAT4 GM INH (12:18)
[2020-03-28 12:26] VITALS: Ht 175.3 cm; Wt 74.8 kg
--- NOTE | 2020-03-28 14:15 | NUR ---
1410 12 LEAD EKG COMPLETED ORDERED BY DR. LANDON. PT WAS C/O CP ON ARRIVAL TO OPS. EKG IS NORMAL AND READ BY DR LANDON
--- NOTE | 2020-03-28 14:39 | NUR ---
1430 VITAL SIGNS ARE BEING RECORDED ON POST PROCEDURE FORM AND PART OF THE PAPER CHART. PT HAS RECEIVED UPDRAFT TREATMENT ORDERED BY DR LANDON. 1442 PCXR IN PROGRESS
--- NOTE | 2020-03-28 15:01 | NUR ---
1450 REPORT GIVEN TO ENEDELIA LEONARD RN FOR TRANSFER OF CARE.
--- NOTE | 2020-03-28 16:25 | NUR ---
1625 CXR NOTED AND APPEARS WNL. PT WEANED TO RA, IV REMOVED AND INSTRUCTIONS GIVEN.
[2020-03-29 14:10] LABS: FUNGUS STAIN Final report (())
[2020-03-29 19:08] LABS: ACID FAST SMEAR Negative (()); AFB SPECIMEN PROCESSING Concentration (())
== END 2020-03-28 16:25 | disposition home or self-care (01) ==
LOC: D.OPS 11:05
PROVIDERS: ATTEND Internal Medicine Pulmonary Disease
DX: J44.9 Chronic obstructive pulmonary disease, unspecified (principal); I25.10 Atherosclerotic heart disease of native coronary artery without angina pectoris; F17.200 Nicotine dependence, unspecified, uncomplicated; Z86.010 Personal history of colon polyps; Z95.5 Presence of coronary angioplasty implant and graft; B44.81 Allergic bronchopulmonary aspergillosis; J45.909 Unspecified asthma, uncomplicated; R05 Cough; K21.9 Gastro-esophageal reflux disease without esophagitis; S22.41XA Multiple fractures of ribs, right side, initial encounter for closed fracture; Z87.01 Personal history of pneumonia (recurrent)

== ENCOUNTER → 2020-04-22 08:06 | Outpatient (CLI) | payer BC ==
[2020-03-28 12:26] VITALS: BMI 24.4
[~2020-04-22 08:06] MED LIST changes: +FLOVENT HFA 11012 GM INH; +IPRAT-ALBUT 0.5-3 ML UPD; +MUCINEX DM ER1 EAC1 PO; +PROAIR HFA8.5 G1 INH; +SPORANOX100 MG PO; +STIOLTO RESPIMAT4 GM INH; +TESSALON PERLE100 MG PO
== END | disposition home or self-care (01) ==
LOC: D.CT 08:06
PROVIDERS: ATTEND Internal Medicine Pulmonary Disease
DX: B44.9 Aspergillosis, unspecified (principal)

== ENCOUNTER 2020-05-08 08:25 | Day surgery (SDC) | payer BC ==
[~2020-05-08] VITALS: Ht 175.3 cm; Wt 70.5 kg
[2020-05-08 08:43] LABS: BASOPHILS 0.4 % (0-2); EOSINOPHILS 2.3 % (0-7); HEMATOCRIT 45.5 % (42.0-54.0); HEMOGLOBIN 15.3 g/dL (13.5-17.5); IMMATURE GRANULOCYTES 0.5 % (0-5); LYMPHOCYTES 23.9 % (15-50); MCH 30.8 pg (26.0-34.0); MCHC 33.6 g/dL (31.0-37.0); MCV 91.5 fL (80.0-100.0); MEAN PLATELET VOLUME 9.4 fL (7.4-10.4); MONOCYTES 8.8 % (2-11); NEUTROPHILS 64.1 % (40-80); PLATELET COUNT 299 10x3/uL (130-400); RBC 4.97 10x6/uL (4.20-6.10); RDW 14.2 % (11.5-14.5); WBC 8.2 10x3/uL (4.8-10.8)
[2020-05-08 08:51] LABS: CALC OSMOLALITY 277 mosm/kg (275-300); CALCIUM 8.9 mg/dL (8.5-10.1); CARBON DIOXIDE 30.3 mmol/L (21.0-32.0); CHLORIDE - SERUM 105 mmol/L (98-107); CREATININE - SERUM 0.9 mg/dL (0.6-1.3); GLUCOSE 91 mg/dL (74-106); INR 0.99 (0.85-1.17); POTASSIUM - SERUM 4.4 mmol/L (3.5-5.1); PROTIME 13.1 SECONDS (11.6-15.0); SODIUM 139 mmol/L (136-145); UREA NITROGEN 13 mg/dL (7-18); eGFR NON AFRICAN AMERICAN > 90 mL/min (90-120)
[2020-05-08 08:52] LABS: APTT 33.8 SECONDS (22.8-39.4)
[2020-05-08 09:10] VITALS: BP 116/70; Ht 175.3 cm; Wt 70.5 kg
--- NOTE | 2020-05-08 13:16 | NUR ---
O2 REMAINS AT 3L AND LUNG SOUNDS UNCHANGED. PT REPORTS IMPROVEMENT AFTER RESCUE INHALER. WILL MONITOR.
--- NOTE | 2020-05-08 14:11 | NUR ---
CXR SHOWS NO PNEUMOTHORAX. NOW ON RA WITH SAT=94% AFTER USING ALBUTEROL. IV D/C'D WITH CANNULA INTACT, PRESSURE HELD AND DRSG PLACED. DISCHARGE INSTRUCTIONS GIVEN AND PT VERBALIZED AN UNDERSTANDING. DISCHARGED WITHOUT C/O AND IN STABLE CONDIITON.
[2020-05-09 19:08] LABS: ACID FAST SMEAR Negative (()); AFB SPECIMEN PROCESSING Concentration (())
== END 2020-05-08 14:12 | disposition home or self-care (01) ==
LOC: D.SP 08:25 → D.CT 10:00 → D.SP 14:12
PROVIDERS: Specialist; ATTEND Internal Medicine Pulmonary Disease
DX: R91.1 Solitary pulmonary nodule (principal); J44.9 Chronic obstructive pulmonary disease, unspecified; B44.9 Aspergillosis, unspecified; J45.909 Unspecified asthma, uncomplicated; R05 Cough; F17.200 Nicotine dependence, unspecified, uncomplicated; K21.9 Gastro-esophageal reflux disease without esophagitis; S22.41XA Multiple fractures of ribs, right side, initial encounter for closed fracture; I25.10 Atherosclerotic heart disease of native coronary artery without angina pectoris; Z87.01 Personal history of pneumonia (recurrent)

== ENCOUNTER → 2020-10-16 09:15 | Outpatient (CLI) | payer BC ==
[2020-05-08 09:10] VITALS: BMI 22.9
== END | disposition home or self-care (01) ==
LOC: D.RT 09:00
PROVIDERS: ATTEND Internal Medicine Pulmonary Disease
DX: J44.9 Chronic obstructive pulmonary disease, unspecified (principal)

== ENCOUNTER → 2020-10-28 08:44 | Outpatient (CLI) | payer BC ==
[2020-10-28 09:42] LABS: SARS-CoV-2 ANTIGEN NEGATIVE- SARS-COV-2 (NEGATIVE)
== END | disposition home or self-care (01) ==
LOC: D.CT 08:44
PROVIDERS: Internal Medicine Pulmonary Disease
DX: R91.1 Solitary pulmonary nodule (principal)